=== PATIENT | male | born 1940 | race Caucasian/White ===

== ENCOUNTER 2018-03-09 10:43 | Day surgery (SDC) | payer OTHER ==
[2018-03-09] MEDS ORDERED: BALANCED SALT IRRIG PLAIN 500 ML BTL IRR ONE (11:05)
[2018-03-09] MEDS ORDERED: EPINEPHRINE/PF 1 MG/ML AMP ONE ×2 (11:05→12:22)
[2018-03-09] MEDS ORDERED: MOXIFLOXACIN HCL 10 DROPS/ML **OR USE OPTH ONE (11:06)
[2018-03-09] MEDS ORDERED: DUOVISC 1 KIT OPTH ONE (11:06)
[2018-03-09] MEDS ORDERED: BUPIVACAINE 0.25% PF 10 ML VIAL ONE (11:14)
[2018-03-09] MEDS ORDERED: NA CHLORIDE 0.9% 500 ML ONE (11:14)
[2018-03-09] MEDS ORDERED: TETRACAINE HCL 0.5% 2ML OPTH ONE (11:14)
[2018-03-09] MEDS ORDERED: PHENYLEPHRINE 10% OPTH 5ML ONE (11:14)
[2018-03-09] MEDS ORDERED: CYCLOPENTOLATE 1% OPTH 2 ML ONE (11:14)
[2018-03-09] MEDS ORDERED: LIDOCAINE 2% MPF 5 ML VIAL ONE ×2 (11:14→12:14)
[2018-03-09] MEDS ORDERED: CYCLOPENTOLATE 1% OPTH 2 ML OPTH ONE ×2 (11:15→11:20)
[2018-03-09] MEDS ORDERED: PHENYLEPHRINE 10% OPTH 5ML OPTH ONE ×2 (11:15→11:20)
--- NOTE | 2018-03-09 11:59 | P.BOP ---
Preoperative diagnosis: Nuclear sclerotic and posterior subcapsular cataract OD Postoperative diagnosis: Same Primary procedure: Phacoemulsification with IOL OD Estimated blood loss: None Anesthesia: Local (Subtenon's infusion with anesthesia for cataract surgery) Complications: None Implants: ZCB00 +20.5 Transferred to: Other (Day surgery) Condition: Good
[2018-03-09] MEDS ORDERED: PROPOFOL 200 MG/20 ML VIAL IV ONE (12:14)
[2018-03-09] MEDS ORDERED: NS 0.9% VIAL 10 ML ONE (12:17)
[2018-03-09 13:03] VITALS: BP 125/64; TEMP 97.7; O2SAT 100
--- NOTE | 2018-03-10 00:30 | OP ---
Date of Procedure: 03/09/2018 Surgeon: Nancy Garcia MD Anesthesiologist: Halina Pemberton CRNA and Moises Parikh MD. Preoperative Diagnosis: Nuclear sclerotic cataract, right eye. Operation Performed: Phacoemulsification with intraocular lens implant, right eye. Anesthesia: Per cataract surgery. Complications: None. Description Of Procedure: In day surgery, the patient was prepped with Betadine and draped. A conju nctival incision was made in the inferior nasal quadrant with Savanah scissors. A sub-Tenon block c onsisting of a 1:1 mixture of 2% Xylocaine and 0.25% bupivacaine was placed through the conjunctival incision with a blunt cannula. A Honan balloon was placed over the eye and the patient was transferr ed to the operating room. In the operating room the patient was prepped and draped in the usual sterile fashion for ophthalmic surgery. A lid speculum was placed in the right eye. Two paracentesis sites were made superiorly an d inferiorly in the limbal cornea. Viscoat was placed in the anterior chamber and a crescent blade w as used to make a corneal groove and tunnel, and a keratome was used to enter the anterior chamber. Provisc was placed in the anterior chamber and a 360 degree capsulotomy was performed with a cystitom e. The lens was hydrodissected with BSS and rotated freely. The lens was removed with a stop and ch op technique. A 15.83 phaco CDE was used to remove the lens. Residual cortex was removed with the i rrigation and aspiration. Provisc was placed in the capsular bag. A ZCB00 +24.5 lens was placed in the capsular bag without complications. Irrigation and aspiration was used to remove residual viscoe lastic. The paracentesis sites were hydrated with BSS. The wound and paracentesis sites were inspec truong and found to be watertight. Vigamox 0.07 cc was placed intracamerally at the end of the procedur e. The eye was irrigated with balanced salt solution. The eye was patched with a soft cotton patch and Tripathi metal shield. The patient was returned to day surgery in good condition. Comments: Discharge Instructions: Mr. Quintana is discharged to home in good condition. He is to follow up with Dr. Garcia in the morning. ADELAIDE/DOMINGA Voice ID: [id number] Report ID: [id number]
== END 2018-03-09 13:40 | disposition home or self-care (01) ==
LOC: OR 10:43
PROVIDERS: ATTEND Ophthalmology Retina Specialist
PROC: 08RJ3JZ Replacement of Right Lens with Synthetic Substitute, Percutaneous Approach (ICD-10-PCS; principal; 2018-03-09 11:00)
DX: H25.11 Age-related nuclear cataract, right eye (principal); G20 Parkinson's disease; E07.9 Disorder of thyroid, unspecified; I25.10 Atherosclerotic heart disease of native coronary artery without angina pectoris; I25.2 Old myocardial infarction; Z85.828 Personal history of other malignant neoplasm of skin; Z85.89 Personal history of malignant neoplasm of other organs and systems; Z87.891 Personal history of nicotine dependence; Z80.9 Family history of malignant neoplasm, unspecified; Z82.49 Family history of ischemic heart disease and other diseases of the circulatory system
CPT/HCPCS: 66984; J0171 ×2; J2704

== ENCOUNTER 2019-06-09 02:39 | Inpatient (IN) | payer OTHER ==
--- OUTSIDE RECORDS SUMMARY | 2019-06-09 02:41 | XMS REPORT ---
:1940 Author Organization eClinicalWorks Care Team Providers Name Role Phone [place], Sayra Provider Role Unavailable Allergies, Adverse Reactions, Alerts Substance Reaction Event Type N.K.D.A. Info Not Available Non Drug Allergy Problems Problem Type Condition Code Onset Dates Condition Status Assessment Elevated PSA R97.20 Active Problem Urge incontinence N39.41 Active Assessment Urge incontinence N39.41 Active Medications Medication Code Code Instructions Start End Status Dosage System Date Date Finasteride [facility] 85470800493 5 MG Orally Active 1 tablet Once a day Silenor [facility] 22831074958 6 MG Orally Active 1 tablet Once a day at bedtime Colace ND 76303642878 100 MG Orally Active 1 capsule Once a day as needed Levothyroxine ND 59386104198 88 MCG Orally Active 1 tablet Sodium Once a day on an empty stomach in the morning Tamsulosin HCl ND 00694865875 0.4 MG Orally Active 1 capsule Once a day Results No Known Results Summary Purpose eClinicalWorks Submission
--- OUTSIDE RECORDS SUMMARY | 2019-06-09 02:41 | XMS REPORT ---
:1940 Author Organization eClinicalWorks Care Team Providers Name Role Phone Linda, Sayra Provider Role Unavailable Allergies, Adverse Reactions, Alerts Substance Reaction Event Type N.K.D.A. Info Not Available Non Drug Allergy Problems Problem Type Condition Code Onset Dates Condition Status Assessment Elevated PSA R97.20 Active Problem Urge incontinence N39.41 Active Assessment Urge incontinence N39.41 Active Medications Medication Code Code Instructions Start End Date Status Dosage System Date Silenor [facility] 48963501162 6 MG Orally Active 1 tablet Once a day at bedtime Colace [facility] 16610865166 100 MG Orally Active 1 capsule Once a day as needed Tamsulosin HCl [facility] 18758823927 0.4 MG Orally Active 1 capsule Once a day Levothyroxine [facility] 81849275911 88 MCG Orally Active 1 tablet Sodium Once a day on an empty stomach in the morning Finasteride [facility] 25950911043 5 MG Orally Padma Active 1 tablet Once a day 2019 Results No Known Results Summary Purpose eClinicalWorks Submission
[2019-06-09 03:37] LABS: Absolute Lymphocytes (CBC) 1.3 K/uL (0.7-4.9); Basophils % 0.6 % (0-1.3); Hematocrit 38.8 % (39.6-49.0); Lymphocytes % 20.1 % (15.3-44.8); MPV 8.9 fL (7.6-11.3); RBC Red Blood Cell Count 4.14 M/uL (4.33-5.43)
[2019-06-09 03:47] LABS: ALT/SGPT 25 U/L (12-78); AST/SGOT 23 U/L (15-37); Albumin 3.4 g/dL (3.4-5.0); Alkaline Phosphatase 105 U/L (45-117); BUN Blood Urea Nitrogen 21 mg/dL (7-18); Bicarbonate 32 mmol/L (21-32); Bilirubin Direct 0.3 mg/dL (0-0.2); Glucose Level 78 mg/dL (74-106); Lipase 70 U/L (73-393); Potassium 3.9 mmol/L (3.5-5.1); Protein, Total 7.5 g/dL (6.4-8.2); Sodium Level 140 mmol/L (136-145); Troponin (Emerg Dept Use Only) < 0.02 ng/mL (0.0-0.045)
[2019-06-09] MEDS ORDERED: ACETAMINOPHEN 325 MG TABLET ONE (03:52)
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
[2019-06-09] MEDS ORDERED: AMIODARONE HCL 150 MG/3 ML INJ IV ONE (05:52)
[2019-06-09] MEDS ORDERED: D5W 100 ML IV ONE (05:53)
[2019-06-09] MEDS ORDERED: AMIODARONE IN DEXTROSE,ISO-OSM 360 MG/200 ML BAG IV ONE (05:54)
[2019-06-09 06:07] LABS: Magnesium 2.2 mg/dL (1.8-2.4)
[2019-06-09] MEDS ORDERED: MORPHINE 4 MG/ML SYR IV PRN (07:35)
[2019-06-09] MEDS ORDERED: ACETAMINOPHEN 500 MG TAB PO PRN (07:35)
--- NOTE | 2019-06-09 07:51 | RAD REPORT ---
EXAM DESCRIPTION: RAD - Chest Single View - 06/09/2019 4:54 am CLINICAL HISTORY: CHEST PAIN COMPARISON: CHEST PA AND LAT 2 VIEW dated 12/22/2014 TECHNIQUE: AP portable chest image was obtained 06/09/2019 4:54 am . FINDINGS: Lungs are underinflated accentuating the baseline interstitial pattern. No large mass or c onsolidations seen. Significant failure and volume overload are not likely present. Heart size is upp er normal range. Mediastinum is accentuated by tortuous aorta and patient rotation. When adjusting fo r rotation and shallow inspiration cardiomediastinal silhouette is not clearly different. No measurab le pleural effusion and no pneumothorax. No acute bony abnormality seen. No acute aortic findings joslyn pected. IMPRESSION: Baseline interstitial pattern is present accentuated by shallow inspiration. No focal ma ss or consolidation.
[2019-06-09] MEDS ORDERED: AMIODARONE HCL 450 MG in D5W 241 ML IV SCH (08:00)
--- NOTE | 2019-06-09 08:15 | EKG ---
Test Date: 2019-06-09 Test Time: 04:00:07 Anesthesia Technician: SWG MEASUREMENT RESULTS: Intervals: Rate: 76 VA: 274 QRSD: 86 QT: 384 QTc: 432 [place]: P: 77 VA: 274 QRS: 36 T: 70 INTERPRETIVE STATEMENTS: Sinus rhythm with 1st degree AV block Otherwise normal ECG Compared to ECG 10/04/2013 13:20:44 Left ventricular hypertrophy no longer present Electronically Signed On 06-09-19 08:14:50 PROCESS CONTROLLER by Rick Garcia
[2019-06-09] MEDS ORDERED: DOXEPIN HCL 6 MG PO SCH (09:00)
[2019-06-09] MEDS ORDERED: LEVODOPA PO SCH (09:00)
[2019-06-09] MEDS ORDERED: AMIODARONE HCL 200 MG TAB PO SCH (09:00)
[2019-06-09] MEDS ORDERED: ENOXAPARIN 80 MG/0.8 ML SQ SCH (09:00)
[2019-06-09] MEDS ORDERED: CARBIDOPA PO SCH (09:00)
[2019-06-09] MEDS ORDERED: ASPIRIN 81 MG CHEWABLE TABLET ONE (09:09)
[2019-06-09] MEDS ORDERED: ENOXAPARIN 80 MG/0.8 ML SQ ONE (09:09)
[2019-06-09] MEDS: ASPIRIN EC 81 MG TAB PO SCH (09:45)
[2019-06-09] MEDS: CARBIDOPA/LEVODOPA 25/100 TAB PO SCH ×3 (09:45→20:28)
--- NOTE | 2019-06-09 10:47 | RAD REPORT ---
EXAM DESCRIPTION: CT - Chest For Pe Angio - 06/09/2019 6:52 am CLINICAL HISTORY: The patient is 78 years old and is Male; CHEST PAIN TECHNIQUE: Axial computed tomographic angiography images of the chest with intravenous contrast. S agittal and coronal reformatted images were created and reviewed. This CT exam was performed using one or more of the following dose reduction techniques: automated exposure control, adjustment of t he mA and/or kV according to patient size, and/or use of iterative reconstruction technique. MIP reconstructed images were created and reviewed. COMPARISON: No relevant prior studies available. FINDINGS: PULMONARY ARTERIES: There are no obvious filling defects identified within the pulmonary arteries to suggest pulmonary embolism. AORTA: Atherosclerosis of the aorta is present. No thoracic aortic aneurysm. LUNGS: Minimal dependent densities in the lung bases are present. Focal area of scarring with air bronchograms in the left upper lobe is noted. The tracheobronchial tree is widely patent. Calci fied granuloma within the right lower lobe is present. No mass. PLEURAL SPACE: Unremarkable. No significant effusion. No pneumothorax. HEART: Unremarkable. No cardiomegaly. No significant pericardial effusion. No evidence of RV dysfunction. BONES/JOINTS: Multilevel degenerative change of the spine is present. No acute fracture. No dislocation. SOFT TISSUES: Unremarkable. LYMPH NODES: Unremarkable. No enlarged lymph nodes. IMPRESSION: 1. No evidence of pulmonary embolism. 2. Focal area of suggested scarring within the left lung apex with a few air bronchograms and pleur al thickening. Comparison with prior imaging would be useful. Electronically signed by: Reanna Christiansen MD 06/09/2019 5:09 AM WOOD WINDOW AND DOOR CRAFTSMAN Due to temporary technical issues with the PACS/Fluency reporting system, reports are being signed by the in house radiologist as a courtesy to ensure prompt reporting. The interpreting radiologist is f ully responsible for the content of the report.
[2019-06-09 10:59] VITALS: BMI 25.5
--- NOTE | 2019-06-09 11:28 | EKG ---
Test Date: 2019-06-09 Test Time: 05:44:31 Salon Stylist: NAYELY MEASUREMENT RESULTS: Intervals: Rate: 86 TN: QRSD: 72 QT: 352 QTc: 421 [place]: P: TN: QRS: 34 T: 68 INTERPRETIVE STATEMENTS: Poor data quality Sinus rhythm Normal ECG Compared to ECG 06/09/2019 05:44:04 no significant change from previous ECG Electronically Signed On 06-09-19 11:27:23 ASSISTANT BANQUET MANAGER by Rick Garcia
--- NOTE | 2019-06-09 11:28 | EKG ---
Test Date: 2019-06-09 Test Time: 05:44:04 Equipment Operating Engineer: NAYELY MEASUREMENT RESULTS: Intervals: Rate: 86 NH: QRSD: 78 QT: 334 QTc: 399 [place]: P: 122 NH: QRS: 47 T: 86 INTERPRETIVE STATEMENTS: Sinus rhythm Normal ECG Compared to ECG 06/09/2019 05:07:38 no significant change from previous ECG Electronically Signed On 06-09-19 11:27:57 SIGNAL HELPER by Rick Garcia
--- NOTE | 2019-06-09 11:28 | EKG ---
Test Date: 2019-06-09 Test Time: 05:07:38 Night Shift: NAYELY MEASUREMENT RESULTS: Intervals: Rate: 71 CT: 236 QRSD: 92 QT: 396 QTc: 430 [place]: P: 82 CT: 236 QRS: 49 T: 84 INTERPRETIVE STATEMENTS: Sinus rhythm with 1st degree AV block Otherwise normal ECG Compared to ECG 06/09/2019 04:00:07 No significant changes Electronically Signed On 06-09-19 11:28:00 BACKING IN MACHINE TENDER by Rick Garcia
--- NOTE | 2019-06-09 13:42 | ECHO ---
HEIGHT: 5 ft 6 in WEIGHT: 158 lb 6 oz DATE OF STUDY: 06/09/[address]: Diana Martínez MD 2-DIMENSIONAL: YES M.MODE: YES DOPPLER: YES COLOR FLOW: YES TDS: YES PORTABLE: DEFINITY: BUBBLE STUDY: DIAGNOSIS: VENTRICULAR TACHYCARDIA CARDIAC HISTORY: CATHERIZATION: SURGERY: PROSTHETIC VALVE: PACEMAKER: MEASUREMENTS (cm) DIASTOLIC (NORMALS) SYSTOLIC (NORMALS) IVSd 1.2 (0.6-1.2) LA Diam 4.0 (1.9-4.0) LVEF 60-69% LVIDd 3.6 (3.5-5.7) LVIDs 2.7 (2.0-3.5) %FS 25% LVPWd 1.4 (0.6-1.2) Ao Diam (2.0-3.7) 2 DIMENSIONAL ASSESSMENT: RIGHT ATRIUM: NORMAL LEFT ATRIUM: DILATED RIGHT VENTRICLE: NORMAL LEFT VENTRICLE: LEFT VENTRICULAR HYPERTROPHY TRICUSPID VALVE: NORMAL MITRAL VALVE: MITRAL ANNULAR CALCIFICATION PULMONIC VALVE: NORMAL AORTIC VALVE: NORMAL PERICARDIAL EFFUSION: NONE AORTIC ROOT: NORMAL LEFT VENTRICULAR WALL MOTION: NORMAL DOPPLER/COLOR FLOW: NORMAL COMMENTS: NORMAL LEFT VENTRICULAR EJECTION FRACTION. LEFT VENTRICULAR HYPERTROPHY. DILATED LEFT ATRIUM. MITRAL ANNULAR CALCIFICATION. TECHNOLOGIST: ROSY TERRAZAS
[2019-06-09] MEDS ORDERED: TRAMADOL HCL 50 MG TAB PO PRN (14:37)
--- NOTE | 2019-06-09 14:38 | P.PN ---
Subjective Date of Service: 06/09/19 Primary Care Provider: Dr. Mendoza; Neurology-Dr. Reyna Chief Complaint: Chest pain Subjective: Improving, Doing well Physical Examination - Vital Signs Temperature: 98.2 F Blood Pressure: 101/66 Pulse: 62 Respirations: 14 Pulse Ox (%): 97 - Physical Exam General: Alert, In no apparent distress, Oriented x3, Cooperative HEENT: Atraumatic Neck: Supple Respiratory: Clear to auscultation bilaterally, Normal air movement Cardiovascular: Normal pulses, Regular rate/rhythm Gastrointestinal: Normal bowel sounds, Soft and benign, Non-distended Neurological: Normal speech, Normal strength at 5/5 x4 extr, Normal tone, Normal affect - Studies Laboratory Data (last 24 hrs) 06/09/19 03:11: Magnesium Cancelled 06/09/19 03:11: Sodium 140, Potassium 3.9, BUN 21 H, Creatinine 0.69, Glucose 78 , Magnesium 2.2, Total Bilirubin 1.0, AST 23, ALT 25, Alkaline Phosphatase 105, Lipase 70 L 06/09/19 03:11: WBC 6.3, Hgb 12.9 L, Hct 38.8 L, Plt Count 264 Medications List Reviewed: Yes Assessment & Plan Discharge Plan: Home Plan to discharge in: 24 Hours - Code Status/Comfort Care Code Status Assessed: Yes (Patient is full code) Physician Review Additional Text: Impression: Chest pain atypical Parkinson's BPH Hypothyroidism Plan: Chest pain atypical: Patient without chest pain at this time. Case discussed with cardiology. Cardiac enzymes unremarkable. Cardiology reviewed initial EKG. No evidence of V-tach. Amiodarone discontinued. Likely arthritic in nature. Will provide medication for pain. Will order physical therapy to assess ambulation. Will continue to monitor closely. Anticipate discharge likely tomorrow with home health and physical therapy. Parkinson's: Patient is seen by neurology. Will continue his medication. Will have physical therapy assess ambulation. BPH: Continue medication. Hypothyroidism: Continue medication Time Spent Managing Pts Care (In Minutes): 55
--- NOTE | 2019-06-09 16:24 | CON ---
Reason For Consultation: Ventricular tachycardia. History Of Present Illness: Mr. Quintana is 78. He has a very remote history 17 years ago of the stent in one of his coronary arteries. Since then, he has done well with regard to the heart. He has und erlying Parkinson disease that dominates every minute of his life. He is very ill from his Parkinson disease. He takes carbidopa/levodopa, Flomax, finasteride, and levothyroxine for underlying hypothy roidism. He is not having angina. Does not have dyslipidemia or diabetes. He has no allergies. He uses no tobacco. He came to the hospital with pain. He points to the rib, but it is at the very heri ttom of the rib cage where he points is actually the left side of the abdomen. He has been having it off and on for a few days. There is no nausea, vomiting, sweating, dyspnea, it tends to come and go for no particular reason. His EKGs do not change. His EKGs are very problematic because of his und erlying tremor. There is a lot of artifact and some misinterpretations have been made and clinical d ecision was made on one misinterpretation that his EKG never showed ventricular tachycardia, it was a rtifact from motion, clearly not ventricular tachycardia. He has been started on amiodarone, but we will stop that. He has had a CT angio of the chest that did not reveal anything wrong. EKGs do not show infarction, injury, or ischemia, lots of artifact, lots of poor data quality and those. His car diac enzymes are normal. Plan: I think we can do an echocardiogram to see if there is any wall motion abnormality. I gave hi m some pain medicines to help and we will keep an eye on things. We can consider doing a nuclear str ess test that I think his ability to hold still for the test would be problematic. Dr. Up will see him after we have some more data and decide on whether he needs a heart catheterization or stress test, but clearly the diagnosis of ventricular tachycardia was not correct. He should not be on amiodarone . RADHA/DOMINGA Voice ID: [id number] Report ID: [id number]
[2019-06-09 17:30] VITALS: O2SAT 100
[2019-06-09] MEDS: ENSURE ENLIVE 237 ML CAN PO SCH (20:27)
[2019-06-09] MEDS ORDERED: JUVEN PACKET PO SCH (21:00)
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
[2019-06-10 04:45] LABS: Thyroid Stimulating Hormone 0.669 uIU/mL (0.360-3.740)
[2019-06-10 05:06] VITALS: BP 133/62; TEMP 97
[2019-06-10] MEDS ORDERED: LEVOTHYROXINE SOD 0.088 MG TAB PO SCH (06:30)
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
--- NOTE | 2019-06-10 08:39 | P.DS ---
Admission Date: 06/09/19 Discharge Date: 06/10/19 Primary Care Provider: Dr. Mendoza; Neurology-Dr. Reyna Disposition: ROUTINE DISCHARGE Discharge Condition: GOOD Reason for Admission: Chest pain Consultations: Cardiology-Dr. Garcia Procedures: CT chest: FINDINGS: PULMONARY ARTERIES: There are no obvious filling defects identified within the pulmonary arteries to suggest pulmonary embolism. AORTA: Atherosclerosis of the aorta is present. No thoracic aortic aneurysm. LUNGS: Minimal dependent densities in the lung bases are present. Focal area of scarring with air bronchograms in the left upper lobe is noted. The tracheobronchial tree is widely patent. Calcified granuloma within the right lower lobe is present. No mass. PLEURAL SPACE: Unremarkable. No significant effusion. No pneumothorax. HEART: Unremarkable. No cardiomegaly. No significant pericardial effusion. No evidence of RV dysfunction. BONES/JOINTS: Multilevel degenerative change of the spine is present. No acute fracture. No dislocation. SOFT TISSUES: Unremarkable. LYMPH NODES: Unremarkable. No enlarged lymph nodes. IMPRESSION: 1. No evidence of pulmonary embolism. 2. Focal area of suggested scarring within the left lung apex with a few air bronchograms and pleural thickening. Comparison with prior imaging would be useful. ECHO: EF 60% LEFT VENTRICULAR WALL MOTION: NORMAL DOPPLER/COLOR FLOW: NORMAL COMMENTS: NORMAL LEFT VENTRICULAR EJECTION FRACTION. LEFT VENTRICULAR HYPERTROPHY. DILATED LEFT ATRIUM. MITRAL ANNULAR CALCIFICATION. Medical Problem List: Chest pain atypical likely costochondritis Parkinson's BPH Hypothyroidism Brief History of Present Illness: 78-year-old male presented to emergency room with chest pain. Patient was evaluated in the emergency room. Patient has a history of BPH and Parkinson 's. There was some concern for arrhythmia. Patient was admitted for further evaluation. Hospital Course: Patient presented with chest pain. Patient had point tenderness to the left ribcage region. There was some concern of abnormal rhythm. Patient was evaluated by Cardiology. No rhythm issues were identified. Patient had normal sinus rhythm. No V-tach was identified. Patient had been on initially amiodarone. This was discontinued. Since that time patient has done well. Blood pressure remained stable off medication. Chest pain likely arthritic in nature. Echocardiogram unremarkable. CT chest also unremarkable. At discharge patient may continue with home health and physical therapy at discharge. At discharge he may continue with ibuprofen 400 mg twice daily as needed for pain. Fall precautions in place. Recommend follow up with his PCP in 1 week to follow up this hospitalization. Patient with Parkinson's. Patient was seen by neurology. At discharge he will continue with carbidopa levodopa 25/100 mg 3 times a day. Fall precautions in place. Recommend follow up with neurology in 2-4 weeks. Patient with BPH. This has remained stable. At discharge he will continue with Proscar 5 mg daily and Flomax 0.4 mg daily. Patient with hypothyroidism. Tsh within normal range. At discharge she will continue with levothyroxine 88 mcg daily. Vital Signs/Physical Exam: Temp Pulse Resp BP Pulse Ox 97.0 F 78 16 133/62 97 06/10/19 07:43 06/10/19 07:43 06/10/19 07:43 06/10/19 07:43 06/10/19 07:43 General: Alert, In no apparent distress, Oriented x3, Cooperative HEENT: Atraumatic Neck: Supple Respiratory: Clear to auscultation bilaterally, Normal air movement Cardiovascular: Normal pulses, Regular rate/rhythm Gastrointestinal: Normal bowel sounds Neurological: Normal speech, Normal strength at 5/5 x4 extr, Normal tone, Other (mild tremor) Laboratory Data at Discharge: WBC 6.3 K/uL (4.3-10.9) 06/09/19 03:11 Hgb 12.9 g/dL (13.6-17.9) L 06/09/19 03:11 Hct 38.8 % (39.6-49.0) L 06/09/19 03:11 Plt Count 264 K/uL (152-406) 06/09/19 03:11 Sodium 140 mmol/L (136-145) 06/09/19 03:11 Potassium 3.9 mmol/L (3.5-5.1) 06/09/19 03:11 BUN 21 mg/dL (7-18) H 06/09/19 03:11 Creatinine 0.69 mg/dL (0.55-1.3) 06/09/19 03:11 Glucose 78 mg/dL (74-106) 06/09/19 03:11 Magnesium 2.2 mg/dL (1.8-2.4) 06/09/19 03:11 Total Bilirubin 1.0 mg/dL (0.2-1.0) 06/09/19 03:11 AST 23 U/L (15-37) 06/09/19 03:11 ALT 25 U/L (12-78) 06/09/19 03:11 Alkaline Phosphatase 105 U/L (45-117) 06/09/19 03:11 Troponin I < 0.02 ng/mL (0.0-0.045) 06/09/19 08:30 Triglycerides 53 mg/dL (<150) 06/10/19 03:50 Cholesterol 144 mg/dL (<200) 06/10/19 03:50 HDL Cholesterol 61 mg/dL (40-60) H 06/10/19 03:50 Cholesterol/HDL Ratio 2.36 06/10/19 03:50 Lipase 70 U/L (73-393) L 06/09/19 03:11 Home Medications: Levothyroxine [Synthroid*] 88 mcg PO DAILY 10/08/13 Carbidopa/Levodopa [Carbidopa-Levo 25-100 mg Odt] 1 each PO TID 03/04/18 Tamsulosin [Flomax*] 0.4 mg PO DAILY 03/04/18 Finasteride [Proscar*] 1 tab PO DAILY 06/09/19 Patient Discharge Instructions: 1. Recommend follow up with PCP in 1 week to follow up this hospitalization. 2. Patient presented with chest pain. Patient had point tenderness to the left ribcage region. There was some concern of abnormal rhythm. Patient was evaluated by Cardiology. No rhythm issues were identified. Patient had normal sinus rhythm. No V-tach was identified. Patient had been on initially amiodarone. This was discontinued. Since that time patient has done well. Blood pressure remained stable off medication. Chest pain likely arthritic in nature. Echocardiogram unremarkable. CT chest also unremarkable. At discharge patient may continue with home health and physical therapy at discharge. At discharge he may continue with ibuprofen 400 mg twice daily as needed for pain. Fall precautions in place. Recommend follow up with his PCP in 1 week to follow up this hospitalization. 3. Patient with Parkinson 's. Patient was seen by neurology. At discharge he will continue with carbidopa levodopa 25/100 mg 3 times a day. Fall precautions in place. Recommend follow up with neurology in 2-4 weeks. 4. Patient with BPH. This has remained stable. At discharge he will continue with Proscar 5 mg daily and Flomax 0.4 mg daily. 5. Patient with hypothyroidism. Tsh within normal range. At discharge she will continue with levothyroxine 88 mcg daily. Diet: AHA Activity: Fall precautions Time spent managing pt's care (in minutes): 55
[2019-06-10] MEDS: ENSURE ENLIVE 237 ML CAN PO SCH (09:00)
[2019-06-10] MEDS ORDERED: TAMSULOSIN 0.4 MG SR CAP PO SCH (09:00)
[2019-06-10] MEDS ORDERED: LIDOCAINE 4% PATCH TOP SCH (09:00)
[2019-06-10] MEDS ORDERED: FINASTERIDE 5 MG TAB PO SCH (09:00)
[2019-06-10] MEDS: CARBIDOPA/LEVODOPA 25/100 TAB PO SCH (10:12)
[2019-06-10] MEDS: ASPIRIN EC 81 MG TAB PO SCH (10:12)
--- NOTE | 2019-06-10 13:46 | PN ---
Date of Progress Note: 06/10/2019 Mr. Quintana is an 78-year-old, had an episode what was thought to be ventricular tachycardia, but turne d out to be artifact. Dr. Garcia saw him and he has suggested maybe doing a stress test. The patien t does have significant tremors and he is not in a situation to do a stress test today. Echocardiogr am, which was done was normal. We will sign off his case. Plan on an outpatient stress test. He ca n go home whenever it is okay with Dr. Arshad. No further arrhythmias noted. NB/MODL Voice ID: [id number] Report ID: [id number]
== END 2019-06-10 10:12 | disposition home or self-care (01) | DRG 206 ==
LOC: ER 02:39 → ERHOLD 07:35 → 3RD-ICU 09:54 → 4TH 18:25
PROVIDERS: ADMIT Hospitalist; ATTEND Hospitalist
DX: M94.0 Chondrocostal junction syndrome [Tietze] (principal); G20 Parkinson's disease; N40.0 Benign prostatic hyperplasia without lower urinary tract symptoms; E03.9 Hypothyroidism, unspecified; I25.10 Atherosclerotic heart disease of native coronary artery without angina pectoris; Z95.5 Presence of coronary angioplasty implant and graft; I25.2 Old myocardial infarction; Z96.653 Presence of artificial knee joint, bilateral
CPT/HCPCS: 36415; 71045; 71275; 80048; 80061; 80076; 83690; 83735; 84439; 84443; 84484; 85025; 93005; 93306; 96374; 97110; 97112; 97116; 97161; 97530; 99285; J0282; J1650; J7060; Q9967

== ENCOUNTER 2019-11-08 07:42 | Emergency (ER) | payer OTHER ==
--- OUTSIDE RECORDS SUMMARY | 2019-11-08 07:55 | XMS REPORT | Continuity of Care Document ---
:1940 Author Organization [facility] t Address [address] [place] [address] Care Team Providers Name Role Phone Melvin FREITAS Primary Care Physician Problems Condition Condition Condition Status Onset Resolution Last Treating Co mments Source Name Details Category Date Date Treatment Clinician Date Lower Lower Disease Active urinary urinary 3-26 Anderso tract tract 00:00: n symptoms symptoms 00 Elevated Elevated Diagnosis Active [facility] PSA PSA [facility] Urge Urge Diagnosis Active [facility] incontinen incontinen [facility] Allergies, Adverse Reactions, Alerts This patient has no known allergies or adverse reactions. Family History Family Member Diagnosis Comments Start Date Stop Date Source Natural brother Mesothelioma MD Maximo tripp Family member problems MD Selwyn diaz Social History Social Habit Start Date Stop Date Quantity Comments Source History of tobacco Current smoker MD Orta use Sex Assigned At MD Argueta on Cigarettes smoked 2016-01-27 2016-01-27 MD Maximo tripp current (pack per 00:00:00 00:00:00 day) - Reported Tobacco use and 2016-01-27 2016-01-27 Former user MD Sweeney son exposure 00:00:00 00:00:00 Alcohol intake 2016-01-27 2016-01-27 Current MD Selwyn diaz 00:00:00 00:00:00 non-drinker of alcohol (finding) Smoking Status Start Date Stop Date Source Former smoker 2016-01-27 00:00:00 2016-01-27 00:00:00 MD Sweeney son Medications Ordered Filled Start Stop Current Ordering Indication Dosage Frequency Signature Comments Components Source Medication Medication Date Date Medication? Clinician (SIG) Name Name tamsulosin 2017-04 Yes Gross .4mg Take 1 MD (FLOMAX) 2-07 hematuria capsule And erso 0.4 mg 24 00:00: (0.4 mg) n hr capsule 00 by mouth daily. finasteride Yes Gross TAKE 1 MD (PROSCAR) 5 1-13 hematuria TABLET (5 Anderso mg tablet 00:00: MG TOTAL) n 00 BY MOUTH DAILY. DIPHENHYDRA 2015-04 Yes 1{tbl} Take 1 MD MINE HCL 0-18 tablet by Kendall o (BENADRYL 15:50: mouth as n ORAL) 15 needed. itching levothyroxi 2015-04 Yes 88mg Take 88 mg MD ne 0-18 by mouth Anderso (SYNTHROID, 15:50: daily. n LEVOTHROID) 15 88 mcg tablet MAGNESIUM 2015-04 Yes 400mg Take 400 MD ORAL 0-18 mg by Anderso 15:50: mouth as n 15 needed. Leg cramps multivitami 2015-04 Yes 1{tbl} Take 1 MD n 0-18 tablet by Anderso (THERAGRAN) 15:50: mouth n tab tablet 15 every other day. zolpidem 2015-04 Yes 5mg Take 5 mg MD (AMBIEN) 5 0-18 by mouth Patel so mg tablet 15:50: daily. n 15 Zolpidem Tartrate traZODone Yes TAKE 1 MD (DESYREL) 9-22 TABLET (50 Maximo rso 50 mg 00:00: MG) BY n tablet 00 MOUTH DAILY AT BEDTIME NEEDED PROAIR HFA Yes INHALE 1 MD 90 1-27 PUFF 2 -4 Anderso mcg/actuati 00:00: TIMES A n on inhaler 00 DAY INHALED Tamsulosin Tamsulosin Yes Sayra [address] [facility] HCl HCl [place] [facility] Silenor Silenor Yes Sayra [address] [facility] [place] at bedtime [facility] Levothyroxi Levothyroxi Yes Sayra [address] [facility] ne Sodium ne Sodium [place] on an [facility] stomach in l [facility] Colace Colace Yes Sayra [address] [facility] [place] as needed [facility] Finasteride Finasteride No Sayra [address] [facility] 08-08 [facility] Procedures This patient has no known procedures. Encounters Start End Encounter Admission Attending Care Care Encounter Source Date/Time Date/Time Type Type Clinicians Facility Department ID 2019-05-14 2019-05-14 Outpatient Tita Piña [id number] [facility] 13:00:00 13:00:00 t Specialty/U [facility] 2019-02-10 2019-02-10 Outpatient Tita Piña [id number] [facility] 09:30:00 09:30:00 t Specialty/U [facility] 2018-11-11 2018-11-11 Outpatient Tita Piña [id number] [facility] 10:00:00 10:00:00 t Specialty/U [facility] Results This patient has no known results.
[2019-11-08 08:20] LABS: Absolute Lymphocytes (CBC) 0.4 K/uL (0.7-4.9); Basophils % 0.3 % (0-1.3); Hematocrit 40.8 % (39.6-49.0); Lymphocytes % 3.9 % (15.3-44.8); MPV 8.7 fL (7.6-11.3); RBC Red Blood Cell Count 4.38 M/uL (4.33-5.43)
--- NOTE | 2019-11-08 08:30 | RAD REPORT ---
EXAM DESCRIPTION: CT - [id number] - 11/08/2019 8:10 am CLINICAL HISTORY: PAIN, slip and fall, head and neck pain COMPARISON: SOFT TISSUE NECK W CONTRAST dated 09/29/2013; Chest For Pe Angio dated 06/09/2019; Chest S jessi View dated 06/09/2019 TECHNIQUE: Axial 5 mm thick images of the head were obtained. Axial 2 mm thick images of the cervic al spine were obtained with sagittal and coronal reconstruction images generated and reviewed. All CT scans are performed using dose optimization technique as appropriate and may include automated exposure control or mA/KV adjustment according to patient size. FINDINGS: No intracranial hemorrhage, mass, edema or acute intracranial finding. No suspicion for ac [place] infarction. No cortical edema or sulcal effacement. Ventricles are in proportion to the mild to m oderate volume loss. Mild to moderate chronic ischemic changes also present. No extra-axial fluid col lections. Mastoid air cells are clear. Chronic right maxillary sinusitis changes are present. Old fac ial bone fractures are evident. The imaged portions of the facial bones match the 2014. No new globe or orbital content abnormality suspected. Cervical bodies are normal in height. No subluxation abnormality. There is minimal rotation of C1 rel ative to the body of C2. This is not substantially different from the prior CT study. Prominent degen erative change present at the dens C1 level. Disc space narrowing is present at all levels except C2- 3. No fracture or acute bony abnormality. No pathologic bone process seen. Facet joint degenerative c hanges are present. Several levels show bony foraminal encroachment. Central canal detail is inherent ly limited. No paraspinal mass or hematoma. Limited upper chest imaging shows focal parenchymal opacification at the left apex. This is only part ially assessed. Scarring is most likely. Mass is unlikely. Appearance has not changed since May 2019. IMPRESSION: Atrophy and chronic ischemic changes are present. No hemorrhage, edema or acute intracra nial finding identifiable. Chronic ischemic change can mask nonhemorrhagic CVA. If there is concern the patient's fall was sebas ered by a CVA, follow-up MR imaging could be performed. 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 Prominent cervical spine degenerative change as detailed. No acute findings seen.
--- NOTE | 2019-11-08 08:49 | RAD REPORT ---
EXAM DESCRIPTION: RAD - Elbow Left 3 View - 11/08/2019 8:19 am CLINICAL HISTORY: PAIN, slip and fall, left elbow pain COMPARISON: None. FINDINGS: No fracture is identified and no elevated posterior fat pad. There is no dislocation or pe riosteal reaction noted. No foreign body or other soft tissue abnormality. IMPRESSION: Negative left elbow examination.
[2019-11-08 09:11] LABS: ALT/SGPT 18 U/L (12-78); AST/SGOT 23 U/L (15-37); Albumin 3.8 g/dL (3.4-5.0); Alkaline Phosphatase 105 U/L (45-117); BUN Blood Urea Nitrogen 22 mg/dL (7-18); Bicarbonate 28 mmol/L (21-32); Bilirubin Total 1.6 mg/dL (0.2-1.0); Creatine Phosphokinase 164 U/L (39-308); Glucose Level 137 mg/dL (74-106); Protein, Total 7.9 g/dL (6.4-8.2); Sodium Level 143 mmol/L (136-145)
[2019-11-08 09:13] LABS: Blood Morphology Comment NOT SEEN (NOT SEEN); Platelet Estimate ADEQ
[2019-11-08] MEDS ORDERED: NA CHLORIDE 0.9% 500 ML ONE (09:45)
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
[2019-11-08 11:03] VITALS: TEMP 98.9
[2019-11-08 11:07] VITALS: BP 129/71; O2SAT 99
== END 2019-11-08 10:57 | disposition home or self-care (01) ==
LOC: ER 07:42
DX: S50.02XA Contusion of left elbow, initial encounter (principal); G20 Parkinson's disease; W07.XXXA Fall from chair, initial encounter; Y93.89 Activity, other specified; Y92.9 Unspecified place or not applicable; I25.2 Old myocardial infarction
CPT/HCPCS: 85025; 36415; 82550; 80053; 70450; 72125; 73080; J7040; 96360; 99284

== ENCOUNTER 2019-11-11 08:06 | Emergency (ER) | payer OTHER ==
--- OUTSIDE RECORDS SUMMARY | 2019-11-11 08:34 | XMS REPORT | Continuity of Care Document ---
:1940 Author Organization [facility] t Address [address] [place] [address] Care Team Providers Name Role Phone Melvin FREITAS Primary Care Physician Problems Condition Condition Condition Status Onset Resolution Last Treating Co mments Source Name Details Category Date Date Treatment Clinician Date Lower Lower Disease Active urinary urinary 3-26 Anderso tract tract 00:00: n symptoms symptoms 00 Elevated Elevated Diagnosis Active [facility] PSA PSA [facility] Urge Urge Diagnosis Active [facility] incontinen incontinen [facility]y k[facility] - [facility] Allergies, Adverse Reactions, Alerts This [...] Sayra [address] [facility] HCl HCl [place] [facility] Silenor Silenor Yes Sayra [address] [facility] Linda at bedtime [facility] Levothyroxi Levothyroxi Yes Sayra [address] [facility] ne Sodium ne Sodium [place] on an [facility] stomach in l the [facility] Colace Colace Yes Sayra [facility] [place] as [facility] Finasteride Finasteride No Sayra [address] [facility] 08-08 Linda [facility] Procedures This patient has no known procedures. Encounters Start End Encounter Admission Attending Care Care Encounter Source Date/Time Date/Time Type Type Clinicians Facility Department ID 2019-05-14 2019-05-14 Outpatient Tita Piña [id number] [facility] 13:00:00 13:00:00 t Specialty/U Becky kes - Specialty [facility]y [facility] 2019-02-10 2019-02-10 Outpatient Tita Piña [id number] [facility] 09:30:00 09:30:00 t Specialty/U Becky kes - Specialty rology [facility] 2018-11-11 2018-11-11 Outpatient Tita Piña [id number] [facility] 10:00:00 10:00:00 t Specialty/U Becky kes - Specialty rology [facility] Results This patient has no known results.
[2019-11-11 09:03] LABS: Absolute Lymphocytes (CBC) 0.9 K/uL (0.7-4.9); Basophils % 1.4 % (0-1.3); Hematocrit 39.5 % (39.6-49.0); Lymphocytes % 13.1 % (15.3-44.8); MPV 8.9 fL (7.6-11.3); RBC Red Blood Cell Count 4.29 M/uL (4.33-5.43)
[2019-11-11 09:12] LABS: BUN Blood Urea Nitrogen 18 mg/dL (7-18); Bicarbonate 29 mmol/L (21-32); Glucose Level 107 mg/dL (74-106); Magnesium 2.2 mg/dL (1.8-2.4); Potassium 3.9 mmol/L (3.5-5.1); Sodium Level 142 mmol/L (136-145)
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
[2019-11-11 09:53] VITALS: TEMP 97.8; O2SAT 97
[2019-11-11 09:54] VITALS: BP 123/70
== END 2019-11-11 09:46 | disposition home or self-care (01) ==
LOC: ER 08:06
DX: G20 Parkinson's disease (principal); I25.2 Old myocardial infarction
CPT/HCPCS: 36415; 80048; 83735; 85025; 93005; 99284

== ENCOUNTER 2020-05-28 22:13 | Inpatient (IN) | payer OTHER ==
[2020-05-28 22:33] LABS: Absolute Lymphocytes (CBC) 1.1 K/uL (0.7-4.9); Basophils % 0.9 % (0-1.3); Hematocrit 39.4 % (39.6-49.0); MPV 8.3 fL (7.6-11.3); RBC Red Blood Cell Count 4.28 M/uL (4.33-5.43)
[2020-05-28 22:39] LABS: Protime INR 1.16
[2020-05-28 22:51] LABS: Albumin 3.4 g/dL (3.4-5.0); Bilirubin Total 0.8 mg/dL (0.2-1.0); Potassium 4.3 mmol/L (3.5-5.1); Protein, Total 7.8 g/dL (6.4-8.2)
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
[2020-05-29] MEDS ORDERED: ALBUTEROL 2.5 MG/3 ML NEB SOL NEB PRN (00:09)
[2020-05-29] MEDS ORDERED: ONDANSETRON 4 MG/2 ML VIAL IV PRN ×2 (00:09→18:49)
[2020-05-29] MEDS ORDERED: LORAZEPAM 0.5 MG TABLET PO PRN (00:12)
[2020-05-29] MEDS ORDERED: Oxycodone HCl/Acetaminophen 1 TAB TAB PO PRN (00:12)
[2020-05-29] MEDS ORDERED: ONDANSETRON 4 MG/2 ML VIAL ONE (00:17)
[2020-05-29] MEDS ORDERED: MORPHINE 4 MG/ML SYR ONE (00:17)
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
[2020-05-29] MEDS ORDERED: NA CHLORIDE 0.9% 1,000 ML ONE (00:21)
[2020-05-29] MEDS ORDERED: D5 0.9 NS 1,000 ML IV SCH (01:00)
[2020-05-29 01:15] LABS: Thyroid Stimulating Hormone 1.57 uIU/mL (0.360-3.740)
[2020-05-29] MEDS: MORPHINE 2 MG/ML SYR IV PRN ×2 (01:41→15:48)
[2020-05-29] MEDS: HEPARIN 5000 UNIT/ML 1 ML VIAL SQ SCH ×3 (01:41→15:53)
[2020-05-29 02:28] VITALS: BMI 25.7
--- NOTE | 2020-05-29 07:39 | RAD REPORT ---
EXAM DESCRIPTION: RAD - Chest Single View - 05/29/2020 1:07 am CLINICAL HISTORY: R/O INFITRATE, shortness of breath COMPARISON: June 09, 2019 TECHNIQUE: AP portable chest image was obtained 05/29/2020 1:07 am . FINDINGS: Increased interstitial opacification is present in both lung omer believed to be a chron ic interstitial lung disease pattern. Linear atelectasis seen in the left base. Skin fold artifacts a re present. No focal consolidation or mass lesion identified. Granulomatous type calcifications seen at the right hilum. Heart and vasculature are normal. No measurable pleural effusion and no pneumothorax. No acute bony abnormality seen. No acute aortic findings suspected. IMPRESSION: No focal pneumonia or acute lung parenchymal process identifiable.
[2020-05-29] MEDS: FAMOTIDINE 20 MG TAB PO SCH ×2 (08:03→20:08)
--- NOTE | 2020-05-29 08:32 | RAD REPORT ---
EXAM DESCRIPTION: RAD - Hip Left 2 View - 05/28/2020 11:26 pm CLINICAL HISTORY: PAIN, fall, pelvic and hip pain COMPARISON: No comparisons FINDINGS: AP and cross-table lateral views of the left hip were obtained. Transverse subcapital neck fracture is present with impaction along the medial margin. No dislocation of the femoral head. No intertrochanteric involvement. Hip joint degenerative changes are present mild for age. AVN is not suspected on plain film. No patho logic changes identified. No significant soft tissue finding. IMPRESSION: Minimally impacted left subcapital femoral neck fracture.
[2020-05-29] MEDS ORDERED: LEVOTHYROXINE SOD 0.088 MG TAB PO SCH (09:00)
--- NOTE | 2020-05-29 12:46 | RAD REPORT ---
EXAM DESCRIPTION: CT - [id number] - 05/29/2020 1:10 am CLINICAL HISTORY: 79-year-old male status post fall injury. COMPARISON: 11/08/2019. TECHNIQUE: CT brain without contrast. This exam was performed according to our departmental dose opt imization program which includes use of automated exposure control, adjustment of the mA and/or kV ac cording to patient size and/or use of iterative reconstruction technique. FINDINGS: Multifocal regions of patchy hypoattenuation are present in a subcortical and periventricu lar deep white matter distribution, nonspecific; however, most likely represent small vessel ischemic disease, age indeterminate. The ventricles, and sulci prominence compatible with underlying volume loss. The carl-white matter differentiation is preserved. There is no mass effect, midline shift, intra- or extra-axial fluid c ollection/acute hemorrhage. The osseous structures are unremarkable. The paranasal sinuses reveal complete opacification of the RIGHT maxillary sinus with sclerosis and thickening of the sinus wall, postoperative changes present suggesting sequela of prior trauma. The remaining paranasal sinuses an d mastoid air cells are clear. Postoperative change of the RIGHT anterior maxillary sinus and super olateral orbit. IMPRESSION: 1. No acute intracranial abnormalities. Nonspecific white matter change most likely sm all vessel ischemic disease, age indeterminate. 2. CT is insensitive for early evaluation of acute stroke. If there is clinical concern for acute ischemia, an MRI may be considered. TECHNIQUE: Cervical spine CT was performed without contrast. Multiplanar reformatted images were pro vided. This exam was performed according to our departmental dose optimization program which includes use of automated exposure control, adjustment of the mA and/or kV according to patient size and/or u se of iterative reconstruction technique. COMPARISON: None. FINDINGS: The bones are demineralized limiting evaluation for subtle fracture. There is normal alignment of the cervical spine without fracture or subluxation. The facets are vivienne l in alignment bilaterally. The posterior elements including the spinous processes are intact. Straig htening of the cervical spine which may be secondary to positioning for the examination. Morphology and attenuation of the vertebral bodies and intervertebral disk spaces is compatible with multilevel degenerative change. Multilevel loss of intervertebral disk height. Multilevel posterior osseous spurring results in sever e bilateral neuroforaminal narrowing throughout the cervical spine. Posterior osseous spurring and small disk bulge results in effacement of the ventral thecal sac and m ild central spinal canal narrowing. 3 mm diffuse disk bulge at C3-4. Additional mild diffuse disk bulge and a LEFT paracentral distributi on measuring 3 mm present at C4-5. LEFT paracentral disk osteophyte complex at C5-6 and C6-7. The pre-and paravertebral soft tissues are within normal limits. LEFT apical scarring or sequela of p rior radiation therapy. IMPRESSION: 1. Straightening of the cervical spine which may be secondary to positioning for the exa mination versus spasm. 2. No fracture or acute subluxation. Electronically signed by: Rosa Pate MD 05/28/2020 11:39 PM SITE OPERATIONS MANAGER Due to temporary technical issues with the PACS/Fluency reporting system, reports are being signed by the in house radiologists without review as a courtesy to insure prompt reporting. The interpreting radiologist is fully responsible for the content of the report.
--- NOTE | 2020-05-29 13:13 | EKG ---
Test Date: 2020-05-28 Test Time: 22:37:31 Technician Terminal And Repeater: YVONNE MEASUREMENT RESULTS: Intervals: Rate: 74 VA: 276 QRSD: 78 QT: 392 QTc: 435 [place]: P: 73 VA: 276 QRS: -13 T: 23 INTERPRETIVE STATEMENTS: Sinus rhythm with 1st degree AV block Moderate voltage criteria for LVH, may be normal variant Borderline ECG Compared to ECG 11/11/2019 08:13:48 Left ventricular hypertrophy now present Prolonged QT interval no longer present Electronically Signed On 05-29-20 13:12:24 FEATHER CUTTING MACHINE FEEDER by Alistair Up
[2020-05-29] MEDS: CEFAZOLIN/SWI 2gm 2 GM/20 ML SYR IVP ONE ×2 (14:56→16:56)
--- NOTE | 2020-05-29 15:51 | P.PN ---
Subjective Date of Service: 05/29/20 Chief Complaint: Fall, left hip pain Patient awake and interactive. He complains of pain with movement of left leg. Physical Examination - Vital Signs Temperature: 98.4 F Blood Pressure: 151/74 Pulse: 97 Respirations: 18 Pulse Ox (%): 98 - Physical Exam General: Oriented x1, Other (Awake) Neck: Supple, JVD not distended Respiratory: Clear to auscultation bilaterally, Normal air movement Cardiovascular: No edema, Regular rate/rhythm, Normal S1 S2 Gastrointestinal: Soft and benign, Non-distended, No tenderness Musculoskeletal: No swelling Integumentary: No rashes Neurological: Other (Moves all extremities spontaneously) - Studies Laboratory Data (last 24 hrs) 05/28/20 22:24: PT 13.4 H, INR 1.16, APTT 28.6 05/28/20 22:24: Sodium 142, Potassium 4.3, BUN 18, Creatinine 0.99, Glucose 144 H, Total Bilirubin 0.8, AST 22, ALT 7 L, Alkaline Phosphatase 116 05/28/20 22:24: WBC 8.00, Hgb 12.9 L, Hct 39.4 L, Plt Count 283 Assessment And Plan - Current Problems (Diagnosis) (1) Hip fracture, left Current Visit: Yes Status: Acute (2) History of Parkinson's disease Current Visit: No Status: Acute (3) Sinus tachycardia Current Visit: Yes Status: Acute - Plan Case discussed with orthopedic Dr. Reyes. Patient with no active cardiac issue. No arrhythmia, no chest pain. No history of heart failure. Electrolytes and CBC are optimal Chest x-ray: No infiltrate. Patient clinical condition is optimal for surgery. Pain management as needed. Patient is currently NPO. Resume Parkinson's disease post op. Watch for post-op delirium. PT evaluation postop. Postop DVT prophylaxis per ortho.
[2020-05-29] MEDS ORDERED: TRANEXAMIC ACID 1,000 MG in NA CHLORIDE 0.9% 50 ML IV ONE ×4 (16:00)
[2020-05-29] MEDS ORDERED: Ringers Lactate 1,000 ML IV ONE ×2 (16:19→18:05)
[2020-05-29] MEDS ORDERED: ROCURONIUM 50 MG/5 ML VIAL IV ONE (16:24)
[2020-05-29] MEDS ORDERED: propofoL 200 MG/20 ML VIAL IV ONE (16:24)
[2020-05-29] MEDS ORDERED: FENTANYL CITR 100 MCG/2 ML ONE (16:24)
[2020-05-29] MEDS ORDERED: SUCCINYLCHOLINE 20 MG/ML (10 ML) IV ONE (16:28)
[2020-05-29] MEDS ORDERED: Phenylephrine HCl 10 MG/ML 1 ML VIAL ONE (17:55)
[2020-05-29] MEDS ORDERED: NEOSTIGMINE 1 MG/ML -5 ML ONE (18:00)
[2020-05-29] MEDS ORDERED: GLYCOPYRROLATE 0.2 MG/ML SYR ONE (18:01)
--- NOTE | 2020-05-29 18:23 | OP ---
Surgeon: Jerrod Reyes MD Bobtail Driver: magistrate assistant, Mona. Preoperative Diagnosis: Left hip hemiarthroplasty. Postoperative Diagnosis: Left hip hemiarthroplasty. Procedure Performed: Left hip hemiarthroplasty. Complications: None. Disposition: Recovery in stable. Procedure In Detail: The patient was taken to the operative suite, placed in supine position, induce d anesthesia. Posterior approach to the hip was utilized with left side up. Hemostasis was verified . External rotators were taken down and tagged for later reattachment. A 53 femoral head was delive red. Reaming broach technique for a 15 stem was appropriate. Lateralized option was selected, +3 of fset. Permanent implants placed. A layered closure performed including repair of external rotators through drill holes in bone. TIRSO/DOMINGA Voice ID: [id number] Report ID: [id number]
[2020-05-29] MEDS ORDERED: MEPERIDINE HCL 25 MG/ML SYR ONE (18:39)
[2020-05-29] MEDS ORDERED: HYDROCODONE/APAP 10/325 TAB PO PRN (18:46)
--- NOTE | 2020-05-29 19:07 | RAD REPORT ---
EXAM DESCRIPTION: RAD - Pelvis - 05/29/2020 6:38 pm CLINICAL HISTORY: S/P LEFT HIP SX COMPARISON: No comparisons FINDINGS: Left hip arthroplasty procedure has been performed. A surgical drain and skin vance are noted. No unexpected immediate postoperative finding.
[2020-05-29] MEDS: NACHLORIDE 0.45% 1,000 ML IV SCH (20:07)
[2020-05-30] MEDS: CEFAZOLIN/SWI 1gm 1 GM/10 ML SYR IVP SCH ×2 (00:31→10:58)
[2020-05-30] MEDS: MORPHINE 2 MG/ML SYR IV PRN ×2 (03:45→06:20)
[2020-05-30] MEDS: NACHLORIDE 0.45% 1,000 ML IV SCH ×2 (05:00→20:00)
[2020-05-30] MEDS: LEVOTHYROXINE SOD 0.088 MG TAB PO SCH (05:01)
[2020-05-30 06:08] LABS: Absolute Lymphocytes (CBC) 0.8 K/uL (0.7-4.9); Basophils % 0.5 % (0-1.3); Hematocrit 39.2 % (39.6-49.0); Lymphocytes % 6.9 % (15.3-44.8); RBC Red Blood Cell Count 4.27 M/uL (4.33-5.43)
[2020-05-30 06:40] LABS: ALT/SGPT 25 U/L (12-78); AST/SGOT 31 U/L (15-37); Albumin 3.2 g/dL (3.4-5.0); Alkaline Phosphatase 117 U/L (45-117); BUN Blood Urea Nitrogen 10 mg/dL (7-18); Bicarbonate 26 mmol/L (21-32); Bilirubin Total 2.5 mg/dL (0.2-1.0); Glucose Level 118 mg/dL (74-106); Protein, Total 7.4 g/dL (6.4-8.2); Sodium Level 137 mmol/L (136-145)
[2020-05-30] MEDS ORDERED: MIDAZOLAM HCL 2 MG/2 ML INJ ONE (07:33)
[2020-05-30] MEDS ORDERED: LIDOCAINE 1% MPF 5 ML VIAL ONE (07:33)
[2020-05-30] MEDS ORDERED: propofoL 200 MG/20 ML VIAL IV ONE (07:33)
[2020-05-30] MEDS ORDERED: FENTANYL CITR 100 MCG/2 ML ONE (07:33)
[2020-05-30 07:38] LABS: Blood Morphology Comment NOT SEEN (NOT SEEN); Platelet Estimate ADEQ; White Blood Cell Scan OK (OK)
[2020-05-30] MEDS: CARBIDOPA LEVO PO SCH ×3 (09:00→21:00)
[2020-05-30] MEDS: AMANTADINE 100 MG CAP PO SCH (10:58)
[2020-05-30] MEDS: FAMOTIDINE 20 MG TAB PO SCH ×2 (10:58→21:50)
[2020-05-30] MEDS: FINASTERIDE 5 MG TAB PO SCH (10:58)
[2020-05-30] MEDS: ENOXAPARIN 30 MG/0.3 ML SQ SCH ×2 (10:58→21:50)
--- NOTE | 2020-05-30 18:05 | P.PN ---
Subjective Date of Service: 05/30/20 Chief Complaint: Fall, left hip pain Subjective: No new changes (s/p OR yesterday, pain controlled, reports doing ok, with some confusion/dementia this morning) Review of Systems 10-point ROS is otherwise unremarkable Physical Examination - Vital Signs Temperature: 99 F Blood Pressure: 153/86 Pulse: 100 Respirations: 20 Pulse Ox (%): 96 Assessment & Plan Physician Review Additional Text: Physical Exam General: Oriented x1, awake, NAD Pulm: Clear to auscultation bilaterally, Normal air movement CV: No edema, Regular rate/rhythm, Normal S1 S2 abd: Soft and benign, Non-distended, No tenderness Ext: no rash, no lesions Neuro: moves all extremities spontaneously Problem List Hip fracture, left History of Parkinson's disease Sinus tachycardia s/p OR fixation with Ortho Doing well post-op Patient with no active cardiac issue. No arrhythmia, no chest pain. No history of heart failure. Pain management as needed. Resume Parkinson's disease monitor for post-op delirium PT evaluation postop. Postop DVT prophylaxis per ortho. Time Spent Managing Pts Care (In Minutes): 35
[2020-05-31] MEDS: NACHLORIDE 0.45% 1,000 ML IV SCH ×3 (00:10→13:51)
[2020-05-31 05:55] LABS: Absolute Lymphocytes (CBC) 0.6 K/uL (0.7-4.9); Basophils % 0.3 % (0-1.3); Hematocrit 37.9 % (39.6-49.0); Lymphocytes % 3.6 % (15.3-44.8); MPV 8.7 fL (7.6-11.3); RBC Red Blood Cell Count 4.18 M/uL (4.33-5.43)
[2020-05-31] MEDS: LEVOTHYROXINE SOD 0.088 MG TAB PO SCH (06:04)
[2020-05-31 06:14] LABS: Albumin 2.8 g/dL (3.4-5.0); Magnesium 2.2 mg/dL (1.8-2.4); Protein, Total 7.1 g/dL (6.4-8.2)
[2020-05-31 07:27] LABS: Platelet Estimate ADEQ; White Blood Cell Scan OK (OK)
[2020-05-31 07:28] LABS: Blood Morphology Comment NOT SEEN (NOT SEEN)
[2020-05-31] MEDS: CARBIDOPA LEVO PO SCH ×3 (09:00→21:31)
[2020-05-31] MEDS: FINASTERIDE 5 MG TAB PO SCH (09:17)
[2020-05-31] MEDS: ENOXAPARIN 30 MG/0.3 ML SQ SCH ×2 (09:17→21:31)
[2020-05-31] MEDS: AMANTADINE 100 MG CAP PO SCH (09:17)
--- NOTE | 2020-05-31 09:31 | P.PN ---
Subjective Date of Service: 06/01/20 Chief Complaint: Fall, left hip pain Subjective: No new changes (has issues with swallow and there is concerns about aspiration.) Physical Examination - Vital Signs Temperature: 98.5 F Blood Pressure: 149/81 Pulse: 93 Respirations: 20 Pulse Ox (%): 96 Assessment And Plan Physician Review Additional Text: Physical Exam General: Oriented x1, awake, NAD Pulm: Clear to auscultation bilaterally, Normal air movement CV: No edema, Regular rate/rhythm, Normal S1 S2 abd: Soft and benign, Non-distended, No tenderness Ext: no rash, no lesions Neuro: moves all extremities spontaneously Problem List Hip fracture, left History of Parkinson's disease Sinus tachycardia s/p HERLINDA fixation with Ortho Doing well post-op. Patient with no active cardiac issue. No arrhythmia, no chest pain. No history of heart failure. Pain management as needed. Resume Parkinson's disease monitor for post-op delirium PT evaluation postop. Postop DVT prophylaxis per ortho.
[2020-05-31] MEDS: FAMOTIDINE 20 MG TAB PO SCH ×2 (10:47→21:31)
[2020-05-31] MEDS: HYDRALAZINE HCL 20 MG/ML VIAL IV PRN (16:16)
[2020-05-31 19:25] LABS: Urine Appearance CLOUDY; Urine Bilirubin NEGATIVE (NEG); Urine Blood 3+ (NEG); Urine Color YELLOW; Urine Glucose NEGATIVE (NEG); Urine Protein NEGATIVE (NEG); Urine Specific Gravity 1.015 (1.005-1.030); Urine Urobilinogen 0.2 mg/dL (0.2-1.0)
[2020-05-31 19:29] LABS: Urine Microscopic Reflex ORDER UMIC
[2020-05-31 20:13] LABS: Urine Bacteria <20 /HPF (NONE SEEN); Urine RBC 20-50 /HPF (NONE SEEN)
[2020-06-01] MEDS: NACHLORIDE 0.45% 1,000 ML IV SCH ×3 (03:29→22:00)
[2020-06-01] MEDS: LEVOTHYROXINE SOD 0.088 MG TAB PO SCH (05:54)
[2020-06-01 06:40] LABS: Absolute Lymphocytes (CBC) 0.6 K/uL (0.7-4.9); Basophils % 0.4 % (0-1.3); Hematocrit 39.8 % (39.6-49.0); Lymphocytes % 3.9 % (15.3-44.8); MPV 9.1 fL (7.6-11.3); RBC Red Blood Cell Count 4.35 M/uL (4.33-5.43)
--- NOTE | 2020-06-01 07:02 | P.PN ---
Subjective Date of Service: 06/01/20 Chief Complaint: Fall, left hip pain Subjective: No new changes Physical Examination - Vital Signs Temperature: 98.5 F Blood Pressure: 149/81 Pulse: 93 Respirations: 20 Pulse Ox (%): 96 Assessment And Plan Physician Review Additional Text: Physical Exam General: Oriented x1, awake, NAD Pulm: Clear to auscultation bilaterally, Normal air movement CV: No edema, Regular rate/rhythm, Normal S1 S2 abd: Soft and benign, Non-distended, No tenderness Ext: no rash, no lesions Neuro: moves all extremities spontaneously Problem List Hip fracture, left History of Parkinson's disease Sinus tachycardia Elevated blood pressure. Plan: s/p HERLINDA fixation with Ortho Doing well post-op. Patient with no active cardiac issue. No arrhythmia, no chest pain. No history of heart failure. Pain management as needed. Resume Parkinson's disease monitor for post-op delirium PT evaluation postop. Postop DVT prophylaxis per ortho. Concerns about swallow raised yesterday. Speech therapist to evaluate. we will monitor blood pressure closely for possible adjustment of medical therapy.
[2020-06-01] MEDS: FINASTERIDE 5 MG TAB PO SCH (09:55)
[2020-06-01] MEDS: FAMOTIDINE 20 MG TAB PO SCH ×2 (09:55→21:33)
[2020-06-01] MEDS: ENOXAPARIN 30 MG/0.3 ML SQ SCH ×2 (09:56→21:35)
[2020-06-01] MEDS: CARBIDOPA LEVO PO SCH ×3 (09:56→21:35)
[2020-06-01] MEDS: AMANTADINE 100 MG CAP PO SCH (10:04)
[2020-06-02] MEDS: LEVOTHYROXINE SOD 0.088 MG TAB PO SCH (06:39)
--- NOTE | 2020-06-02 08:25 | P.PN ---
Subjective Date of Service: 06/02/20 Chief Complaint: Fall, left hip pain Subjective: No new changes, Other (still has swallow issues.) Physical Examination - Vital Signs Temperature: 97.6 F Blood Pressure: 135/97 Pulse: 101 Respirations: 18 Pulse Ox (%): 95 Assessment And Plan Physician Review Additional Text: Physical Exam General: Oriented x1, awake, NAD Pulm: Clear to auscultation bilaterally, Normal air movement CV: No edema, Regular rate/rhythm, Normal S1 S2 abd: Soft and benign, Non-distended, No tenderness Ext: no rash, no lesions Neuro: moves all extremities spontaneously Problem List Hip fracture, left History of Parkinson's disease Sinus tachycardia Elevated blood pressure. Plan: s/p HERLINDA fixation with Ortho Doing well post-op. Patient with no active cardiac issue. No arrhythmia, no chest pain. No history of heart failure. Pain management as needed. Resume Parkinson's disease. monitor for post-op delirium. PT evaluation postop. Postop DVT prophylaxis per ortho. Concerns about swallow raised. Speech therapist to evaluate. we will monitor blood pressure closely for possible adjustment of medical therapy.
[2020-06-02] MEDS: NACHLORIDE 0.45% 1,000 ML IV SCH ×2 (09:34→21:18)
[2020-06-02] MEDS: ENOXAPARIN 30 MG/0.3 ML SQ SCH ×2 (09:35→20:31)
[2020-06-02] MEDS: FAMOTIDINE 20 MG TAB PO SCH ×2 (10:52→20:34)
[2020-06-02] MEDS: CARBIDOPA LEVO PO SCH ×3 (10:52→20:33)
[2020-06-02] MEDS: FINASTERIDE 5 MG TAB PO SCH (10:52)
[2020-06-02] MEDS: AMANTADINE 100 MG CAP PO SCH (10:52)
--- NOTE | 2020-06-02 17:33 | P.PN ---
Subjective Date of Service: 06/02/20 Chief Complaint: Fall, left hip pain Subjective: No new changes Review of Systems is unable to be obtained Physical Examination - Vital Signs Temperature: 97.7 F Blood Pressure: 164/87 Pulse: 72 Respirations: 16 Pulse Ox (%): 94 - Physical Exam Musculoskeletal: Other (dressinds c/c/i) Assessment And Plan - Current Problems (Diagnosis) (1) History of left hip hemiarthroplasty Current Visit: Yes Status: Acute Plan: may be discharged to [facility] with walker, hip precautions. follow up in office 2 weeks postop. anticoagulat 28 days Discharge Plan: Alf Physician Review Additional Text: Physical Exam General: Oriented x1, awake, NAD Pulm: Clear to auscultation bilaterally, Normal air movement CV: No edema, Regular rate/rhythm, Normal S1 S2 abd: Soft and benign, Non-distended, No tenderness Ext: no rash, no lesions Neuro: moves all extremities spontaneously Problem List Hip fracture, left History of Parkinson's disease Sinus tachycardia Elevated blood pressure. Plan: s/p HERLINDA fixation with Ortho Doing well post-op. Patient with no active cardiac issue. No arrhythmia, no chest pain. No history of heart failure. Pain management as needed. Resume Parkinson's disease. monitor for post-op delirium. PT evaluation postop. Postop DVT prophylaxis per ortho. Concerns about swallow raised. Speech therapist to evaluate. we will monitor blood pressure closely for possible adjustment of medical therapy.
[2020-06-03] MEDS: LEVOTHYROXINE SOD 0.088 MG TAB PO SCH (05:46)
[2020-06-03 07:48] LABS: ALT/SGPT 8 U/L (12-78); AST/SGOT 16 U/L (15-37); Albumin 2.6 g/dL (3.4-5.0); Alkaline Phosphatase 83 U/L (45-117); BUN Blood Urea Nitrogen 25 mg/dL (7-18); Bicarbonate 30 mmol/L (21-32); Bilirubin Total 1.7 mg/dL (0.2-1.0); Glucose Level 112 mg/dL (74-106); Magnesium 2.2 mg/dL (1.8-2.4); Protein, Total 7.1 g/dL (6.4-8.2); Sodium Level 141 mmol/L (136-145)
--- NOTE | 2020-06-03 10:26 | RAD REPORT ---
EXAM DESCRIPTION: RAD - Chest Single View - 06/03/2020 10:13 am CLINICAL HISTORY: cough, difficulty swallowing COMPARISON: Portable May 29 TECHNIQUE: AP portable chest image was obtained 06/03/2020 10:13 am . FINDINGS: Lung volumes are very low compared to prior study. Left hemidiaphragm elevation again note d. Retrocardiac left base assessment very limited. Upper left lung field in the right lung field are clear of any new mass or infiltrate. No significant failure or volume overload findings identified. Heart and vasculature are normal. No measurable pleural effusion and no pneumothorax. No acute bony abnormality seen. No acute aortic findings suspected. IMPRESSION: Chest examination is limited as detailed. No acute cardiopulmonary finding confirmed.
[2020-06-03] MEDS: FAMOTIDINE 20 MG TAB PO SCH ×2 (10:42→22:08)
[2020-06-03] MEDS: CARBIDOPA LEVO PO SCH ×3 (10:42→22:08)
[2020-06-03] MEDS: FINASTERIDE 5 MG TAB PO SCH (10:42)
[2020-06-03] MEDS: AMANTADINE 100 MG CAP PO SCH (10:43)
[2020-06-03] MEDS: ENOXAPARIN 30 MG/0.3 ML SQ SCH ×2 (10:43→22:07)
[2020-06-03] MEDS: MORPHINE 2 MG/ML SYR IV PRN (13:54)
--- NOTE | 2020-06-03 14:29 | P.PN ---
Subjective Date of Service: 06/03/20 Chief Complaint: Fall, left hip pain Subjective: No new changes (very fatigued appearing, weak voice, confused, oriented x1-2. reports mild pain in back, breathing "ok") Review of Systems 10-point ROS is otherwise unremarkable Physical Examination - Vital Signs Temperature: 97.7 F Blood Pressure: 168/81 Pulse: 96 Respirations: 18 Pulse Ox (%): 97 Assessment & Plan Physician Review Additional Text: Physical Exam General: Oriented x1, awake HEENT: normal conjunctiva, PERRL Pulm: mild bibasilar crackles, dimisihed air entry CV: RRR, no murmur, no edema abd: Soft, NTND Ext: no rash, no lesions Neuro: moves all extremities, following basic commands. answers questions - difficult to understand at times Problem List Hip fracture, left History of Parkinson's disease Sinus tachycardia Elevated blood pressure. s/p HERLINDA fixation with Ortho reportedly with difficulty swallowing post-operatively spoke with family today - report patient is more confused / weak / difficult to understand since out of surgery. state he has some "bad days", but on good days he's mostly independent continue parkinson medications - carvidopa/levodopa. Family state recently re- started on nuplazid (2nd time) and again notice he was "not himself" since starting it, with more confusion/agitation PT evaluation postop. Postop DVT prophylaxis per ortho. Speech therapy evaluated patient patient with minimal PO intake postoperatively, discussed with family, will place dobhoff, start tube feeds CXR today with no significant change Dispo: to SNF once improved Time Spent Managing Pts Care (In Minutes): 35
--- NOTE | 2020-06-03 14:56 | RAD REPORT ---
EXAM DESCRIPTION: RAD - Chest Single View - 06/03/2020 2:38 pm CLINICAL HISTORY: Device placement Dobhoff tube placement IMPRESSION: A Dobhoff tube has been placed into the proximal stomach. It is coiled with the tip poin ting cranially. The tip lies 1.3 centimeters from the GE junction
[2020-06-03] MEDS ORDERED: JEVITY 1.5 CAL LIQUID 1,000 ML BOT FT SCH (15:00)
--- NOTE | 2020-06-03 18:28 | RAD REPORT ---
EXAM DESCRIPTION: RAD - Chest Single View - 06/03/2020 6:19 pm CLINICAL HISTORY: Device placement Dobhoff tube placement IMPRESSION: The tip of a Dobhoff tube lies within the gastric body
[2020-06-03] MEDS: JEVITY 1.2 CAL LIQUID 1,000 ML BOT RTH SCH (22:38)
[2020-06-04] MEDS ORDERED: NACHLORIDE 0.45% 500 ML IV ONE (01:18)
[2020-06-04] MEDS: HYDRALAZINE HCL 20 MG/ML VIAL IV PRN (05:08)
[2020-06-04] MEDS: LEVOTHYROXINE SOD 0.088 MG TAB PO SCH (05:33)
[2020-06-04 06:59] LABS: Absolute Lymphocytes (CBC) 0.6 K/uL (0.7-4.9); Basophils % 0.1 % (0-1.3); Hematocrit 36.2 % (39.6-49.0); Lymphocytes % 5.4 % (15.3-44.8); MPV 9.1 fL (7.6-11.3); RBC Red Blood Cell Count 3.99 M/uL (4.33-5.43)
[2020-06-04 07:14] LABS: ALT/SGPT 9 U/L (12-78); AST/SGOT 15 U/L (15-37); Albumin 2.5 g/dL (3.4-5.0); Alkaline Phosphatase 82 U/L (45-117); BUN Blood Urea Nitrogen 24 mg/dL (7-18); Bicarbonate 26 mmol/L (21-32); Bilirubin Total 1.9 mg/dL (0.2-1.0); Glucose Level 128 mg/dL (74-106); Magnesium 2.2 mg/dL (1.8-2.4); Potassium 3.8 mmol/L (3.5-5.1); Protein, Total 6.8 g/dL (6.4-8.2); Sodium Level 142 mmol/L (136-145)
[2020-06-04] MEDS ORDERED: METOPROLOL TARTRATE 5 MG/5 ML INJ IV STA (08:26)
[2020-06-04] MEDS: FINASTERIDE 5 MG TAB PO SCH (09:00)
[2020-06-04] MEDS: CARBIDOPA LEVO PO SCH ×3 (09:00→22:58)
[2020-06-04] MEDS: FAMOTIDINE 20 MG TAB PO SCH ×2 (09:00→22:57)
[2020-06-04] MEDS: AMANTADINE 100 MG CAP PO SCH (09:00)
--- NOTE | 2020-06-04 09:20 | RAD REPORT ---
EXAM DESCRIPTION: RAD - Chest Single View - 06/04/2020 9:02 am CLINICAL HISTORY: hx ruptured spleen, shortness of breath COMPARISON: Portable June 03 TECHNIQUE: AP portable chest image was obtained 06/04/2020 9:02 am . FINDINGS: Lung volumes remain very low. Parenchymal stranding in the left base has not changed. No n ew or progressive failure or volume overload. Heart and vasculature are normal. No measurable pleural effusion and no pneumothorax. No acute bony abnormality seen. No acute aortic findings suspected. Fe eding tube traverses the midline chest. IMPRESSION: Exam remains limited due to low lung volumes. No significant change from June 03.
--- NOTE | 2020-06-04 09:23 | RAD REPORT ---
EXAM DESCRIPTION: RAD - Abdomen 1 View (KUB) - 06/04/2020 9:02 am CLINICAL HISTORY: hx ruptured spleen , abdominal pain COMPARISON: None FINDINGS: Feeding tube is in place with the tip in the body of the stomach. No free air or pneumatos is. Air and stool distended do not dilate the colon from mid ascending colon to mid descending colon. Stool is present in nondilated rectum. No dilated small bowel loops seen. Pelvic floor phleboliths are present. Recently placed left bipolar hip prosthesis in place. Skin vance are still present lateral to the hip joint. Advanced bony degenerative changes are present. IMPRESSION: Air and stool are present distending but not dilating the colon from mid ascending to mi d descending portions. Stool is present in the rectum. No small bowel dilatation, free air or emergent finding.
--- NOTE | 2020-06-04 10:17 | P.PN ---
Subjective Date of Service: 06/04/20 Chief Complaint: Fall, left hip pain Subjective: Other (patient with sinus tachycardia in 120s this morning, review of telemetry reveal patient with HR up to 180 for 20-30 seconds overnight - narrow complex tachycardia. patient awake, minimally responding with one words, slow to respond, tachypneic) Physical Examination - Vital Signs Temperature: 99.4 F Blood Pressure: 132/72 Pulse: 94 Respirations: 21 Pulse Ox (%): 92 Assessment & Plan Physician Review Additional Text: Physical Exam General: Oriented x1, awake, lethargic HEENT: normal conjunctiva, PERRL Pulm: mild bibasilar crackles, dimisihed air entry throughout, tachypneic CV: sinus tachycardia 120s, no murmur, no edema abd: mild distention in epigastric region / above umbilicus, difficult to ascertain if tender, possible mild tenderness Ext: no rash, no lesions, surgical site with dressing c/d/i Neuro: moves extremities, squeezes hand on command Problem List Hip fracture, left; s/o ORIF History of Parkinson's disease Sinus tachycardia, SVT Elevated blood pressure. s/p HERLINDA fixation with Ortho; reportedly with difficulty swallowing post- operatively spoke with family- report patient is more confused / weak / difficult to understand since out of surgery. state he has some "bad days", but on good days he's mostly independent -likely multifactorial, patient chronic ischemic changes, Parkinson's /dementia, and surgery will increase his risk for postoperative delirium. Family report the patient was speaking somewhat confused before coming into the hospital. Possible stroke, will repeat CT brain today continue parkinson medications - carvidopa/levodopa. Family state recently re- started on nuplazid (2nd time) and again notice he was "not himself" since starting it, with more confusion/agitation. do not want this medication given to him, and he has not received while hospitalized Patient with minimal p.o. intake, discuss with family on 06/03, Dobhoff placed 06/03 Patient was slight distension of his abdomen today, possible tenderness. Last BM 2-3 days ago, hold tube feeds, obtain CT abdomen/pelvis Tachycardia and tachypnea, given recent fall/fracture, will obtain CTA chest to rule out PE Postop DVT prophylaxis per ortho. - on therapeutic Lovenox Speech therapy evaluated patient low grade temperature today as well, will obtain blood culture, leukocytosis and mildly elevated procal trending down without antibiotics Dispo: hospitalization > 2days; anticipate SNF once improved discussed plan of care with , discussed possible need for PEG tube if prolonged dysphagia Time Spent Managing Pts Care (In Minutes): 45
--- NOTE | 2020-06-04 11:50 | RAD REPORT ---
EXAM DESCRIPTION: CT - Head Brain Wo Cont - 06/04/2020 11:20 am CLINICAL HISTORY: r/o CVA, dysphagia, weakness COMPARISON: Head C Spine Mpr Wo Con dated 05/28/2020 TECHNIQUE: Axial 5 mm thick images of the head were obtained without IV contrast. All CT scans are performed using dose optimization technique as appropriate and may include automated exposure control or mA/KV adjustment according to patient size. FINDINGS: No intracranial hemorrhage, mass, edema or shift of mid-line structures. No acute cortical based infarction identified. No cortical edema or sulcal effacement. Moderate cerebral and mild cere bellar atrophy changes are present. Ventricles are in proportion to volume loss. Chronic ischemic oren nges are seen in the cerebral white matter extending into each basal ganglia in the left thalamus. Br ainstem chronic ischemic change is suspected as well. Arterial tree calcifications are present. Mastoid air cells and visualized portions of the paranasal sinuses are clear. No acute bony findings. IMPRESSION: Mild to moderate atrophy changes of the cerebral and cerebellar hemispheres present with ventricles in proportion to volume loss. No acute intracranial finding. Extensive chronic ischemic changes are present potentially masking acu te nonhemorrhagic CVA. Ongoing concerns for acute CVA can be addressed with MR imaging.
--- NOTE | 2020-06-04 11:54 | RAD REPORT ---
EXAM DESCRIPTION: CT - Chest For Pe Angio - 06/04/2020 11:34 am CLINICAL HISTORY: r/o PE COMPARISON: Chest For Pe Angio dated 06/09/2019; Chest Single View dated 06/04/2020 TECHNIQUE: Dynamically enhanced 3 mm thick images of the chest were obtained during administration o f approximately 150mL Isovue 370 IV contrast. Coronal and oblique MIP reconstruction images were gene rated and reviewed. Exam utilizes a protocol to evaluate the pulmonary arterial tree. All CT scans are performed using dose optimization technique as appropriate and may include automated exposure control or mA/KV adjustment according to patient size. FINDINGS: No pulmonary emboli are identified. The aorta as imaged shows no acute or suspicious finding. No pericardial thickening or effusion. Bilateral lung base atelectasis present. There is additional right lung base alveolar opacification a nd a concurrent mild pneumonia in the right base is possible. This needs correlation with clinical pr esentation. Left hemidiaphragm elevation is present. Bilateral upper lobes and right middle lobe are clear. Underlying COPD changes are evident. No pleural effusion or pleural thickening. No mediastinal or hilar suspicious masses. No chest wall masses or abnormal axillary lymphadenopathy. IMPRESSION: No pulmonary emboli identified. Bilateral lung base atelectasis present and this potentially masks minimal infiltrate in the right ena ng base.
--- NOTE | 2020-06-04 12:02 | RAD REPORT ---
EXAM DESCRIPTION: CT - Abdomen Pelvis W Contrast - 06/04/2020 11:35 am CLINICAL HISTORY: abdominal pain, distention COMPARISON: No comparisons TECHNIQUE: Biphasic, helical CT imaging of the abdomen and pelvis was performed following 100 ml non -ionic IV contrast. No oral contrast administered. All CT scans are performed using dose optimization technique as appropriate and may include automated exposure control or mA/KV adjustment according to patient size. FINDINGS: Lung base findings are detailed in separate CT chest report. Feeding tube is in place with the tip in the body of the stomach. No focal liver abnormality seen. Cholecystectomy clips are present with no abnormal biliary tree dila tation. Atrophy changes of the pancreas are present. No primary pancreatic process identifiable. Sple en is absent. Small splenic nodule remnants are seen in the left upper quadrant. Left hemidiaphragm e levation is present. Renal function is symmetric. Small cortical cysts are present. Parenchymal opacification is somewhat heterogeneous but probably not pyelonephritis or other acute parenchymal process. There is mild right -sided moderate left-sided hydronephrosis. No nonobstructing calculi seen. Ureters are difficult to f ollow along the entire course. [place] artifact from left hip prosthesis limits ability to evaluate for small UVJ calculi. The patient has multiple phleboliths along the pelvic floor. Dilated urinary blad stefan is present without wall thickening or mass identified. No bladder stones seen. Prostate gland is not appear abnormally enlarged. No adrenal abnormalities. Stomach is decompressed. No dilated small bowel loops. Rectum is dilated to 10 cm by stool. Moderate stool volume elsewhere in the colon more pronounced along the right side. An obstructing mass is not identified. Appendix is difficult to uniquely identified. Acute appendicitis is not suspected. No free air or pneumatosis. No abnormal free fluid collection. There is fluid retention in the subcut aneous fatty tissues and to a lesser degree peritoneal fatty tissues. No hernia, mass or bulky lymph adenopathy. No suspicious bony findings. Prominent bony degenerative changes are present. Dense arterial tree calcifications are present. IMPRESSION: No bowel obstruction, free air or surgically emergent finding identifiable. Patient has significant bilateral hydronephrosis but no obstructing calculus confirmed. The urinary b ladder is dilated and hydronephrosis is probably functional from the urinary bladder retention. Pros tatic urethral obstruction or similar outflow track abnormality is suspected. Rectum is dilated by stool to 10 cm in diameter. Prominent stool volume throughout the rest of the co mauricio. Stomach is decompressed with feeding tube in place. No acute small bowel finding.
[2020-06-04] MEDS: NACHLORIDE 0.45% 1,000 ML IV SCH ×3 (12:30→12:41)
[2020-06-04] MEDS: ENOXAPARIN 30 MG/0.3 ML SQ SCH ×2 (12:40→22:57)
[2020-06-04] MEDS: METOPROLOL TAR 25 MG TAB PO SCH ×2 (13:47→20:38)
[2020-06-04] MEDS ORDERED: FLEET ENEMA ADULT PR ONE (14:00)
[2020-06-04] MEDS: LEVALBUTEROL 0.63 MG/3 ML NEB NEB SCH ×2 (15:08→22:50)
[2020-06-04 15:14] LABS: Urine Appearance CLEAR; Urine Bilirubin NEGATIVE (NEG); Urine Blood NEGATIVE (NEG); Urine Color YELLOW; Urine Glucose NEGATIVE (NEG); Urine Protein NEGATIVE (NEG); Urine Specific Gravity 1.015 (1.005-1.030); Urine Urobilinogen 0.2 mg/dL (0.2-1.0)
[2020-06-04 15:18] LABS: Urine Microscopic Reflex NO UMIC
[2020-06-05] MEDS: NACHLORIDE 0.45% 1,000 ML IV SCH ×3 (01:00→13:30)
[2020-06-05] MEDS: LEVOTHYROXINE SOD 0.088 MG TAB PO SCH (05:21)
[2020-06-05] MEDS: METOPROLOL TAR 25 MG TAB PO SCH ×2 (05:21→17:06)
[2020-06-05 05:56] LABS: Absolute Lymphocytes (CBC) 0.8 K/uL (0.7-4.9); Basophils % 0.4 % (0-1.3); Hematocrit 35.3 % (39.6-49.0); Lymphocytes % 8.3 % (15.3-44.8); MPV 8.3 fL (7.6-11.3); RBC Red Blood Cell Count 3.88 M/uL (4.33-5.43)
[2020-06-05 06:14] LABS: ALT/SGPT 9 U/L (12-78); AST/SGOT 16 U/L (15-37); Albumin 2.2 g/dL (3.4-5.0); Alkaline Phosphatase 71 U/L (45-117); BUN Blood Urea Nitrogen 18 mg/dL (7-18); Bicarbonate 28 mmol/L (21-32); Bilirubin Total 1.1 mg/dL (0.2-1.0); Glucose Level 140 mg/dL (74-106); Potassium 3.5 mmol/L (3.5-5.1); Protein, Total 6.2 g/dL (6.4-8.2); Sodium Level 144 mmol/L (136-145)
[2020-06-05] MEDS: LEVALBUTEROL 0.63 MG/3 ML NEB NEB SCH ×3 (07:54→23:00)
[2020-06-05] MEDS: ENOXAPARIN 30 MG/0.3 ML SQ SCH ×3 (09:38→22:31)
[2020-06-05] MEDS: FINASTERIDE 5 MG TAB PO SCH (09:39)
[2020-06-05] MEDS: CARBIDOPA LEVO PO SCH ×3 (09:39→21:00)
[2020-06-05] MEDS: AMANTADINE 100 MG CAP PO SCH (09:39)
[2020-06-05] MEDS: FAMOTIDINE 20 MG TAB PO SCH ×3 (09:39→22:31)
--- NOTE | 2020-06-05 12:12 | PN ---
Date of Progress Note: 06/05/2020 Mr. Quintana has been followed for SVT. He had come in with a hip fracture. He was started on metoprol ol 12.5 mg b.i.d., has had 1 episode of VT, this lasted a minute and half. Since then, no hemodynami c compromise. No symptoms with it. Echocardiogram is pending for today. I would definitely increas e his beta-dylan dose to 25 mg b.i.d. The case was discussed with Dr. Duong. We will continue to follow. RIRI/DOMINGA Voice ID: [id number] Report ID: [id number]
[2020-06-05] MEDS: JEVITY 1.2 CAL LIQUID 1,000 ML BOT RTH SCH (14:30)
--- NOTE | 2020-06-05 17:13 | P.PN ---
Subjective Date of Service: 06/05/20 Chief Complaint: Fall, left hip pain Subjective: Improving (breathing slightly more comfortably with scheduled nebs. very weak, weak voice, masked facies. tolerating dobhoff feeds, had good / large BM yesterday) Review of Systems 10-point ROS is otherwise unremarkable Physical Examination - Vital Signs Temperature: 99.1 F Blood Pressure: 127/58 Pulse: 97 Respirations: 18 Pulse Ox (%): 94 Assessment & Plan Physician Review Additional Text: Physical Exam General: Oriented x1, awake, lethargic, squeezes hand on command and in response to questions HEENT: normal conjunctiva, masked facies Pulm: mild R basilar rhonchi, diminished air entry throughout, shallow respirations CV: regular rate and rhythm, occasional sinus tachycardia (90s), no murmur, no edema abd: soft, NTND Ext: no rash, no lesions, surgical site with dressing c/d/i Neuro: squeezes hand on command and in response to questions Problem List Hip fracture, left; s/o ORIF History of Parkinson's disease Sinus tachycardia, SVT Elevated blood pressure. s/p HERLINDA fixation with Ortho; with difficulty swallowing post-operatively spoke with family- report patient is more confused / weak / difficult to understand since out of surgery. state he has some "bad days", but on good days he's mostly independent -likely multifactorial, patient chronic ischemic changes, Parkinson's /dementia, and surgery will increase his risk for postoperative delirium. Family report the patient was speaking somewhat confused before coming into the hospital. Possible stroke, CT brain 06/04 no acute stroke. obtain MRI to r/o stroke Neurology consulted - patient's neurologist is Dr. Reyna Patient missed nearly 2 days of carvidopa/levodopa on day of surgery and POD1 due to not having medication available - this combined with surgery is likely causing an acute worsening/"exacerbation" of his parkinson's symptoms - masked facies, weakness, mild stiffness continue parkinson medications - carvidopa/levodopa. Family state recently re- started on nuplazid (2nd time) and again notice he was "not himself" since starting it, with more confusion/agitation. do not want this medication given to him, and he has not received while hospitalized Patient with minimal p.o. intake, discuss with family on 06/03, Dobhoff placed 06/03. tolerated tube feeds Had Tachycardia and tachypnea, given recent fall/fracture, obtained CTA - however negative for PE Postop DVT prophylaxis per ortho. - on therapeutic Lovenox Speech therapy consulted Dispo: hospitalization > 2days; anticipate SNF once improved discussed plan of care with , discussed possible need for PEG tube if prolonged dysphagia Time Spent Managing Pts Care (In Minutes): 35
--- NOTE | 2020-06-05 18:39 | CON ---
Date of Consultation: 06/04/2020 Reason For Consultation: Tachycardia. History Of Present Illness: This is an 79-year-old male with history of Parkinson disease, coronary artery disease, hypothyroidism, debilitated. The patient presented after a fall and has been having low-grade fever. He is tachycardic at one point and it appears to be sinus tachycardia. After givin g IV Lopressor, his heart rate went down, it was clearly sinus tachycardia. There are no specific ca rdiac complaints. Past Medical History: As outlined above in the HPI. Medications: Refer consultation sheet for detailed list. Allergies: NO KNOWN DRUG ALLERGIES. Family History: No premature coronary artery disease, cancer. Social History: Does not smoke or drink. Does not use any drugs. Review of Systems: All systems reviewed and they were negative except for what is mentioned in the HPI. Physical Examination: Vital Signs: Temperature was 98.8, pulse is 95, breathing at 18, blood pressure 143/71, saturating 9 2%. General: Pleasant elderly male, in no distress. Head and Neck: Pupils are equal, reactive to light. Intact eye movements. No JVD. No cervical lym phadenopathy. Neck is supple. Thyroid is not enlarged. Lungs: Clear to auscultation bilaterally. No rhonchi, rales, or crackles. No accessory muscle use. Heart: Regular rate and rhythm. No extra sounds. Abdomen: Soft, nontender. Bowel sounds positive. No organomegaly. No rigidity or rebound. Extremities: No edema, clubbing, or cyanosis. Skin: No rash. Neurologic: Alert, awake. No acute focal deficits appreciated. Investigations: Sodium 42, creatinine 0.76. White blood count 7.8, hemoglobin 12.2. Assessment And Plan: Tachycardia, narrow complex, likely sinus tachycardia in response to infection. Recommend to do a CTA of the lungs to rule out pulmonary embolism as a cause as well, as he is not mobile. Toprol 12.5 mg twice a day started. Continue to monitor on telemetry, and further plan acco rding to above. Please obtain echocardiogram. Thank you for the consult. /DOMINGA Voice ID: [id number] Report ID: [id number]
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
[2020-06-05] MEDS ORDERED: CARBIDOPA/LEVODOPA 25/100 TAB FT SCH (22:30)
[2020-06-05] MEDS: CARBIDOPA/LEVODOPA 25/100 TAB FT SCH (22:32)
[2020-06-06] MEDS: NACHLORIDE 0.45% 1,000 ML IV SCH ×2 (01:15→14:30)
[2020-06-06] MEDS: METOPROLOL TAR 25 MG TAB PO SCH ×2 (05:15→17:02)
[2020-06-06] MEDS: LEVOTHYROXINE SOD 0.088 MG TAB PO SCH (05:15)
[2020-06-06 06:02] LABS: Absolute Lymphocytes (CBC) 0.7 K/uL (0.7-4.9); Basophils % 0.4 % (0-1.3); Hematocrit 33.8 % (39.6-49.0); Lymphocytes % 5.9 % (15.3-44.8); MPV 8.1 fL (7.6-11.3); RBC Red Blood Cell Count 3.72 M/uL (4.33-5.43)
[2020-06-06 06:13] LABS: ALT/SGPT 13 U/L (12-78); AST/SGOT 14 U/L (15-37); Albumin 2.2 g/dL (3.4-5.0); Alkaline Phosphatase 71 U/L (45-117); BUN Blood Urea Nitrogen 13 mg/dL (7-18); Bicarbonate 31 mmol/L (21-32); Bilirubin Total 0.7 mg/dL (0.2-1.0); Glucose Level 144 mg/dL (74-106); Magnesium 1.9 mg/dL (1.8-2.4); Potassium 3.5 mmol/L (3.5-5.1); Sodium Level 143 mmol/L (136-145)
[2020-06-06] MEDS: LEVALBUTEROL 0.63 MG/3 ML NEB NEB SCH ×3 (07:55→23:10)
--- NOTE | 2020-06-06 09:24 | ECHO ---
HEIGHT: 5 ft 6 in WEIGHT: 159 lb 1.6 oz DATE OF STUDY: 06/05/[address]: Alistair Up MD 2-DIMENSIONAL: YES M.MODE: YES DOPPLER: YES COLOR FLOW: YES TDS: NO PORTABLE: NO DEFINITY: NO BUBBLE STUDY: NO DIAGNOSIS: SUPRAVENTRICULAR TACHYCARDIA CARDIAC HISTORY: CATHERIZATION: SURGERY: PROSTHETIC VALVE: PACEMAKER: MEASUREMENTS (cm) DIASTOLIC (NORMALS) SYSTOLIC (NORMALS) IVSd 1.0 (0.6-1.2) LA Diam (1.9-4.0) LVEF 65% LVIDd 3.2 (3.5-5.7) LVIDs 2.1 (2.0-3.5) %FS 34% LVPWd 1.0 (0.6-1.2) Ao Diam 2.8 (2.0-3.7) 2 DIMENSIONAL ASSESSMENT: RIGHT ATRIUM: NORMAL LEFT ATRIUM: NORMAL RIGHT VENTRICLE: NORMAL LEFT VENTRICLE: NORMAL TRICUSPID VALVE: NORMAL MITRAL VALVE: MITRAL ANNULAR CALCIFICATION PULMONIC VALVE: NORMAL AORTIC VALVE: PERICARDIAL EFFUSION: NONE AORTIC ROOT: NORMAL LEFT VENTRICULAR WALL MOTION: NORMAL DOPPLER/COLOR FLOW: SEE BELOW. COMMENTS: NORMAL LEFT VENTRICULAR EJECTION FRACTION >60%, HYPERDYNAMIC. 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 MILD AORTIC INSUFFICIENCY. TECHNOLOGIST: Bryanna TERRAZAS
--- NOTE | 2020-06-06 09:29 | RAD REPORT ---
EXAM DESCRIPTION: MRI - Brain W/Wo Cont - 06/05/2020 10:08 pm CLINICAL HISTORY: CVA COMPARISON: June 04, [address] TECHNIQUE: Axial, sagittal, and coronal magnetic images of the brain were obtained. 16 cc MultiHance administered intravenously FINDINGS: Mild to moderate signal within periventricular, deep and subcortical white matter probably ischemic changes secondary to small vessel disease The ventricles are normal in caliber. Diffusion-weighted/ ADC mapping sequences do not demonstrate evidence of an acute infarction. No abnormal enhancement within the brain is seen. An extra-axial fluid collection is not noted. . Mild cerebral atrophy Fluid within the sinuses/mastoids is not seen. Mild chronic sinusitis IMPRESSION: No acute abnormality displayed
--- NOTE | 2020-06-06 09:30 | RAD REPORT ---
EXAM DESCRIPTION: MRI - MRA Neck W/Wo Cont - 06/05/2020 10:08 pm CLINICAL HISTORY: CVA COMPARISON: None. TECHNIQUE: Magnetic resonance angiogram of the neck was performed. 19 cc MultiHance was administered intravenously. 3D MIPS reconstruction performed FINDINGS: Mild plaque within common carotid, internal carotid and external carotid arteries. An aneu rysm is not seen. Left vertebral artery is dominant. No significant abnormalities splayed. IMPRESSION: Mild plaque within the carotid arteries NASCET criteria used. Mild 0-49% stenosis Moderate 50-69% stenosis Severe 70-99% stenosis
--- NOTE | 2020-06-06 09:32 | RAD REPORT ---
EXAM DESCRIPTION: MRI - MRA Head Wo Cont - 06/05/2020 10:08 pm CLINICAL HISTORY: CVA COMPARISON: None. TECHNIQUE: Magnetic resonance angiogram was performed. 3D MIPS reconstruction performed FINDINGS: The anterior cerebral, middle cerebral, posterior cerebral, distal internal carotid and ba silar arteries do not demonstrate a significant stenosis. An aneurysm is not displayed. IMPRESSION: No significant abnormalities displayed
[2020-06-06] MEDS: ENOXAPARIN 30 MG/0.3 ML SQ SCH ×2 (10:04→20:57)
[2020-06-06] MEDS: FINASTERIDE 5 MG TAB PO SCH (10:05)
[2020-06-06] MEDS: AMANTADINE 100 MG CAP PO SCH (10:05)
[2020-06-06] MEDS: FAMOTIDINE 20 MG TAB PO SCH ×2 (10:05→20:58)
[2020-06-06] MEDS: CARBIDOPA/LEVODOPA 25/100 TAB FT SCH ×4 (10:08→20:58)
[2020-06-06] MEDS: JEVITY 1.2 CAL LIQUID 1,000 ML BOT RTH SCH (12:20)
--- NOTE | 2020-06-06 16:11 | P.PN ---
Subjective Date of Service: 06/06/20 Chief Complaint: Fall, left hip pain Patient awake. He is stiff and moves only his eyes. Physical Examination - Vital Signs Temperature: 98.8 F Blood Pressure: 124/60 Pulse: 81 Respirations: 19 Pulse Ox (%): 94 - Physical Exam General: Other (Awake) HEENT: Other (NGT) Neck: JVD not distended Respiratory: Clear to auscultation bilaterally, Normal air movement Cardiovascular: No edema, Regular rate/rhythm Gastrointestinal: Normal bowel sounds, Soft and benign, Non-distended Musculoskeletal: No swelling Neurological: Other (Global rigidity.) Assessment And Plan - Current Problems (Diagnosis) (1) Hip fracture, left Current Visit: Yes Status: Acute (2) History of Parkinson's disease Current Visit: No Status: Acute (3) Sinus tachycardia Current Visit: Yes Status: Acute (4) Dysphagia Current Visit: Yes Status: Acute Physician Review Additional Text: Physical Exam General: Oriented x1, awake, lethargic, squeezes hand on command and in response to questions HEENT: normal conjunctiva, masked facies Pulm: mild R basilar rhonchi, diminished air entry throughout, shallow respirations CV: regular rate and rhythm, occasional sinus tachycardia (90s), no murmur, no edema abd: soft, NTND Ext: no rash, no lesions, surgical site with dressing c/d/i Neuro: squeezes hand on command and in response to questions Problem List Hip fracture, left; s/o ORIF History of Parkinson's disease Sinus tachycardia, SVT Elevated blood pressure. s/p HERLINDA fixation with Ortho; with difficulty swallowing post-operatively spoke with family- report patient is more confused / weak / difficult to understand since out of surgery. state he has some "bad days", but on good days he's mostly independent -likely multifactorial, patient chronic ischemic changes, Parkinson's /dementia, and surgery will increase his risk for postoperative delirium. Family report the patient was speaking somewhat confused before coming into the hospital. Possible stroke, CT brain 06/04 no acute stroke. MRI of the brain: No acute CV Neurology consulted - patient's neurologist is Dr. Reyna. Patient missed nearly 2 days of carvidopa/levodopa on day of surgery and POD1 due to not having medication available - this combined with surgery is likely causing an acute worsening/"exacerbation" of his parkinson's symptoms - masked facies, weakness, stiffness. Her major contribution factor is the surgery. continue parkinson medications - carvidopa/levodopa. Neurology input appreciated. Patient started on fast acting Sinemet. Improvement to baseline functional status is unlikely. I had a prognosis discussion with the spouse and recommended hospice. She will want us to continue treatment for the next few days to see how he respond. NG tube is inserted for feeding. Patient would eventually need PEG tube if he does not end up on hospice. Spouse wishes to make him DNR. Postop DVT prophylaxis per ortho. - on therapeutic Lovenox
[2020-06-06] MEDS ORDERED: NA CHLORIDE 0.9% 250 ML IV PRN (16:37)
[2020-06-06] MEDS: NA CHLORIDE 0.9% 1,000 ML IV SCH (17:34)
[2020-06-06] MEDS ORDERED: METOPROLOL TARTRATE 5 MG/5 ML INJ IV STA (23:34)
[2020-06-07] MEDS ORDERED: METOPROLOL TARTRATE 5 MG/5 ML INJ IV PRN
--- NOTE | 2020-06-07 00:04 | EKG ---
Test Date: 2020-06-04 Test Time: 08:19:20 Suede Brusher: [id number] MEASUREMENT RESULTS: Intervals: Rate: 125 RI: QRSD: 104 QT: 378 QTc: 545 [place]: P: RI: QRS: -23 T: 52 INTERPRETIVE STATEMENTS: Accelerated Junctional rhythm Minimal voltage criteria for LVH, may be normal variant Possible Lateral infarct, age undetermined Abnormal ECG Compared to ECG 05/28/2020 22:37:31 Accelerated junctional rhythm now present Myocardial infarct finding now present Sinus rhythm no longer present First degree AV block no longer present Electronically Signed On 06-06-20 23:59:36 FUNCTIONAL CONSULTANT by Alistair Up
[2020-06-07] MEDS: NA CHLORIDE 0.9% 1,000 ML IV SCH ×3 (03:20→23:44)
[2020-06-07 04:36] LABS: Absolute Lymphocytes (CBC) 0.7 K/uL (0.7-4.9); Basophils % 0.1 % (0-1.3); Hematocrit 33.7 % (39.6-49.0); Lymphocytes % 6.5 % (15.3-44.8); MPV 8.3 fL (7.6-11.3); RBC Red Blood Cell Count 3.72 M/uL (4.33-5.43)
[2020-06-07 05:00] LABS: BUN Blood Urea Nitrogen 13 mg/dL (7-18); Bicarbonate 30 mmol/L (21-32); Glucose Level 165 mg/dL (74-106); Potassium 3.8 mmol/L (3.5-5.1); Sodium Level 141 mmol/L (136-145)
[2020-06-07] MEDS: METOPROLOL TAR 25 MG TAB PO SCH ×2 (05:42→18:00)
[2020-06-07] MEDS: LEVOTHYROXINE SOD 0.088 MG TAB PO SCH (05:43)
[2020-06-07] MEDS: JEVITY 1.2 CAL LIQUID 1,000 ML BOT RTH SCH (06:46)
[2020-06-07] MEDS: LEVALBUTEROL 0.63 MG/3 ML NEB NEB SCH ×2 (08:27→16:00)
[2020-06-07] MEDS: CARBIDOPA/LEVODOPA 25/100 TAB FT SCH ×4 (10:54→22:19)
[2020-06-07] MEDS: FINASTERIDE 5 MG TAB PO SCH (10:54)
[2020-06-07] MEDS: ENOXAPARIN 30 MG/0.3 ML SQ SCH ×2 (10:55→22:20)
[2020-06-07] MEDS: FAMOTIDINE 20 MG TAB PO SCH ×2 (10:55→22:19)
[2020-06-07] MEDS: AMANTADINE 100 MG CAP PO SCH (10:55)
--- NOTE | 2020-06-07 14:20 | P.PN ---
Subjective Date of Service: 06/07/20 Chief Complaint: Fall, left hip pain Subjective: No new changes (Patient still drowsy) Review of Systems is unable to be obtained Physical Examination - Vital Signs Temperature: 98.3 F Blood Pressure: 114/56 Pulse: 80 Respirations: 21 Pulse Ox (%): 90 - Physical Exam General: Unresponsive HEENT: Atraumatic, Normocephalic Neck: Supple Respiratory: Clear to auscultation bilaterally, Normal air movement Cardiovascular: Regular rate/rhythm, Normal S1 S2 Capillary refill: <2 Seconds Gastrointestinal: Soft and benign, W/out hepatosplenomegaly Musculoskeletal: No clubbing Integumentary: No rashes Neurological: Other (Drowsy , barely arousable ,) Lymphatics: No axilla or inguinal lymphadenopathy Assessment & Plan Physician Review Additional Text: Assessment and plan Acute encephalopathy Hip fracture, left; s/o ORIF History of Parkinson's disease Sinus tachycardia, SVT Elevated blood pressure. s/p HERLINDA fixation with Ortho; with difficulty swallowing post-operatively spoke with family- report patient is more confused / weak / difficult to understand since out of surgery. state he has some "bad days", but on good days he's mostly independent -likely multifactorial, patient chronic ischemic changes, Parkinson's /dementia, and surgery will increase his risk for postoperative delirium. Family report the patient was speaking somewhat confused before coming into the hospital. Possible stroke, CT brain 06/04 no acute stroke. MRI of the brain: No acute CV Neurology consulted - patient's neurologist is Dr. Reyna. Patient missed nearly 2 days of carvidopa/levodopa on day of surgery and POD1 due to not having medication available - this combined with surgery is likely causing an acute worsening/"exacerbation" of his parkinson's symptoms - masked facies, weakness, stiffness. Her major contribution factor is the surgery. continue parkinson medications - carvidopa/levodopa. Neurology input appreciated. Patient started on fast acting Sinemet. Improvement to baseline functional status is unlikely. I had a prognosis discussion with the spouse and recommended hospice. She will want us to continue treatment for the next few days to see how he respond. NG tube is inserted for feeding. Patient would eventually need PEG tube if he does not end up on hospice. Spouse wishes to make him DNR. Postop DVT prophylaxis per ortho. - on therapeutic Lovenox Discussed in detail with the family at the bedside. Discuss about options Family wants to wait 1-2 days to see if any meaningful recovery workers Time Spent Managing Pts Care (In Minutes): 40
[2020-06-07] MEDS ORDERED: METOPROLOL TARTRATE 5 MG/5 ML INJ IV STA ×2 (14:33→18:08)
[2020-06-07] MEDS ORDERED: CALCIUM GLUC 10% INJ 4.65 MEQ in NA CHLORIDE 0.9% 100 ML IV ONE (14:33)
[2020-06-07] MEDS ORDERED: NA CHLORIDE 0.9% 500 ML IV ONE (17:59)
[2020-06-07] MEDS ORDERED: METOPROLOL TAR 25 MG TAB PO SCH (18:00)
[2020-06-07 18:38] LABS: Hematocrit 36.9 % (39.6-49.0)
[2020-06-07 19:01] LABS: ALT/SGPT 67 U/L (12-78); AST/SGOT 28 U/L (15-37); Albumin 2.3 g/dL (3.4-5.0); Alkaline Phosphatase 81 U/L (45-117); BUN Blood Urea Nitrogen 14 mg/dL (7-18); Bicarbonate 30 mmol/L (21-32); Bilirubin Total 0.6 mg/dL (0.2-1.0); Glucose Level 162 mg/dL (74-106); Potassium 4.1 mmol/L (3.5-5.1); Protein, Total 6.2 g/dL (6.4-8.2); Sodium Level 142 mmol/L (136-145)
--- NOTE | 2020-06-07 19:02 | RAD REPORT ---
EXAM DESCRIPTION: RAD - Chest Single View - 06/07/2020 6:30 pm CLINICAL HISTORY: tachy Chest pain. COMPARISON: Abdomen 1 View (KUB) dated 06/04/2020; Chest Single View dated 06/04/2020; Chest Single Vi ew dated 06/03/2020; Chest Single View dated 06/03/2020 FINDINGS: Portable technique limits examination quality. The lungs are underinflated with atelectasis both lung bases. The heart is mildly prominent in size. Enteric tube is likely in the stomach.Gaseous distention of bowel loops suggests ileus.
[2020-06-07] MEDS: METOPROLOL TAR 50 MG TAB PO SCH (22:19)
[2020-06-08] MEDS: JEVITY 1.2 CAL LIQUID 1,000 ML BOT RTH SCH (04:37)
--- NOTE | 2020-06-08 05:44 | EKG ---
Test Date: 2020-06-04 Test Time: 08:54:21 Route Process Administrator: [id number] MEASUREMENT RESULTS: Intervals: Rate: 91 AK: 204 QRSD: 110 QT: 358 QTc: 440 [place]: P: 62 AK: 204 QRS: -18 T: 27 INTERPRETIVE STATEMENTS: Normal sinus rhythm Normal ECG Compared to ECG 06/04/2020 08:52:50 No significant changes Electronically Signed On 06-08-20 05:36:32 RUG SCRATCHER by Alistair Up
--- NOTE | 2020-06-08 05:44 | EKG ---
Test Date: 2020-06-04 Test Time: 08:56:11 Physical Therapy Aide: [id number] MEASUREMENT RESULTS: Intervals: Rate: 92 MD: 204 QRSD: 106 QT: 340 QTc: 420 [place]: P: 65 MD: 204 QRS: -19 T: 26 INTERPRETIVE STATEMENTS: Normal sinus rhythm Nonspecific ST abnormality Abnormal ECG Compared to ECG 06/04/2020 08:54:21 ST (T wave) deviation now present Electronically Signed On 06-08-20 05:36:31 INSURANCE AGENCY OWNER by Alistair Up
--- NOTE | 2020-06-08 05:44 | EKG ---
Test Date: 2020-06-04 Test Time: 08:52:50 Competency Evaluated Nurse Aide: [id number] MEASUREMENT RESULTS: Intervals: Rate: 95 NM: 206 QRSD: 106 QT: 328 QTc: 412 [place]: P: 69 NM: 206 QRS: -19 T: 31 INTERPRETIVE STATEMENTS: Normal sinus rhythm Normal ECG Compared to ECG 06/04/2020 08:19:20 Accelerated junctional rhythm no longer present Left ventricular hypertrophy no longer present Myocardial infarct finding no longer present Electronically Signed On 06-08-20 05:36:33 PEDIATRIC DENTAL ASSISTANT by Alistair Up
[2020-06-08] MEDS: LEVOTHYROXINE SOD 0.088 MG TAB PO SCH (06:46)
[2020-06-08] MEDS: LEVALBUTEROL 0.63 MG/3 ML NEB NEB SCH ×3 (07:47→15:00)
[2020-06-08] MEDS: AMANTADINE 100 MG CAP PO SCH (10:27)
[2020-06-08] MEDS: METOPROLOL TAR 50 MG TAB PO SCH ×2 (10:27→21:00)
[2020-06-08] MEDS: CARBIDOPA/LEVODOPA 25/100 TAB FT SCH ×3 (10:27→19:41)
[2020-06-08] MEDS: FAMOTIDINE 20 MG TAB PO SCH ×2 (10:27→21:17)
[2020-06-08] MEDS: FINASTERIDE 5 MG TAB PO SCH (10:27)
[2020-06-08] MEDS: ENOXAPARIN 30 MG/0.3 ML SQ SCH ×2 (10:28→21:16)
[2020-06-08] MEDS: NA CHLORIDE 0.9% 1,000 ML IV SCH ×2 (11:56→21:15)
--- NOTE | 2020-06-08 17:24 | P.PN ---
Subjective Date of Service: 06/08/20 Chief Complaint: Fall, left hip pain Patient awake. He is now able to verbalize a few words and move his neck. Noted he has gag reflex. Chest x-ray demonstrated dilated and possible small- bowel dishes distention consistent with ileus. Nurse report patient had a bowel movement after the chest x-ray. Physical Examination - Vital Signs Temperature: 98.3 F Blood Pressure: 138/78 Pulse: 80 Respirations: 18 Pulse Ox (%): 95 - Physical Exam General: In no apparent distress, Other (Awake, follows commands intermittently.) HEENT: PERRLA, Sclerae nonicteric Neck: JVD not distended Respiratory: Clear to auscultation bilaterally, Normal air movement Cardiovascular: Regular rate/rhythm, Normal S1 S2, Edema (Bilateral upper extremities, worse on the right.) Gastrointestinal: Normal bowel sounds, Soft and benign, Non-distended Musculoskeletal: No tenderness Integumentary: No rashes Neurological: Other (Global stiffness. No limb movement.) Assessment And Plan - Current Problems (Diagnosis) (1) Hip fracture, left Current Visit: Yes Status: Acute (2) History of Parkinson's disease Current Visit: No Status: Acute (3) Sinus tachycardia Current Visit: Yes Status: Acute (4) Dysphagia Current Visit: Yes Status: Acute Physician Review Additional Text: Assessment and plan Acute encephalopathy Hip fracture, left; s/o ORIF History of Parkinson's disease Sinus tachycardia, SVT Elevated blood pressure. s/p HERLINDA fixation with Ortho; with difficulty swallowing post-operatively spoke with family- report patient is more confused / weak / difficult to understand since out of surgery. state he has some "bad days", but on good days he's mostly independent -likely multifactorial, patient chronic ischemic changes, Parkinson's /dementia, and surgery will increase his risk for postoperative delirium. Family report the patient was speaking somewhat confused before coming into the hospital. Possible stroke, CT brain 06/04 no acute stroke. MRI of the brain: No acute CV Neurology consulted - patient's neurologist is Dr. Reyna. Patient missed nearly 2 days of carvidopa/levodopa on day of surgery and POD1 due to not having medication available - this combined with surgery is likely causing an acute worsening/"exacerbation" of his parkinson's symptoms - masked facies, weakness, stiffness. Her major contribution factor is the surgery. continue parkinson medications - carvidopa/levodopa. Neurology input appreciated. Patient started on fast acting Sinemet. Improvement to baseline functional status is unlikely. I had a prognosis discussion with the spouse and recommended hospice. She will want us to continue treatment for the next few days to see how he respond. NG tube is inserted for feeding. Patient would eventually need PEG tube if he does not end up on hospice. Now verbalizing a few words. He is tolerating NG tube feeding. Abdomen is not distended. Postive BM. Continue NG tube feeding. Speech therapy to follow for ongoing swallow evaluations. Postop DVT prophylaxis per ortho. - on therapeutic Lovenox. Discussed in detail with the family at the bedside. Family wants to wait 1-2 days to see if any meaningful recovery occurs.
[2020-06-08] MEDS ORDERED: METOPROLOL TARTRATE 5 MG/5 ML INJ IV STA (20:29)
[2020-06-08] MEDS ORDERED: NA CHLORIDE 0.9% 500 ML IV ONE (23:38)
[2020-06-09] MEDS: CARBIDOPA/LEVODOPA 25/100 TAB FT SCH ×3 (00:36→13:00)
[2020-06-09] MEDS ORDERED: ADENOSINE 6 MG/ 2ML VIAL IV ONE ×2 (01:30→01:45)
[2020-06-09] MEDS ORDERED: NA CHLORIDE 0.9% 500 ML IV ONE (01:36)
[2020-06-09 03:39] LABS: BUN Blood Urea Nitrogen 16 mg/dL (7-18); Bicarbonate 27 mmol/L (21-32); Glucose Level 155 mg/dL (74-106); Potassium 4.1 mmol/L (3.5-5.1); Sodium Level 139 mmol/L (136-145)
[2020-06-09] MEDS: NA CHLORIDE 0.9% 1,000 ML IV SCH (06:28)
[2020-06-09] MEDS: LEVOTHYROXINE SOD 0.088 MG TAB PO SCH (06:28)
[2020-06-09] MEDS: LEVALBUTEROL 0.63 MG/3 ML NEB NEB SCH ×2 (08:00)
[2020-06-09] MEDS: FINASTERIDE 5 MG TAB PO SCH (09:00)
[2020-06-09] MEDS: METOPROLOL TAR 50 MG TAB PO SCH (09:00)
[2020-06-09] MEDS: FAMOTIDINE 20 MG TAB PO SCH (09:00)
[2020-06-09] MEDS: AMANTADINE 100 MG CAP PO SCH (09:00)
[2020-06-09] MEDS: ENOXAPARIN 30 MG/0.3 ML SQ SCH (09:00)
[2020-06-09 09:45] VITALS: O2SAT 90
[2020-06-09] MEDS: MORPHINE 2 MG/ML SYR IV PRN (12:40)
[2020-06-09 12:51] VITALS: BP 86/6; TEMP 97.8
--- NOTE | 2020-06-09 14:10 | EKG ---
Test Date: 2020-06-08 Test Time: 23:41:48 Market Research Executive: SREG MEASUREMENT RESULTS: Intervals: Rate: 144 GA: QRSD: 112 QT: 296 QTc: 458 [place]: P: GA: QRS: -17 T: 56 INTERPRETIVE STATEMENTS: Supraventricular tachycardia Otherwise normal ECG Compared to ECG 06/08/2020 19:57:35 No significant changes Electronically Signed On 06-09-20 14:08:53 JOB FOREMAN by Alistair Up
--- NOTE | 2020-06-09 14:11 | EKG ---
Test Date: 2020-06-08 Test Time: 19:57:35 General Assembler: RT-O MEASUREMENT RESULTS: Intervals: Rate: 152 [place]: QRSD: 112 QT: 298 QTc: 473 [place]: P: [place]: QRS: -17 T: 74 INTERPRETIVE STATEMENTS: Supraventricular tachycardia Otherwise normal ECG Compared to ECG 06/04/2020 08:56:11 Sinus rhythm no longer present ST (T wave) deviation no longer present Electronically Signed On 06-09-20 14:09:01 CARD CLOTHIER by Alistair Up
--- NOTE | 2020-06-09 15:48 | P.DS ---
Admission Date: 05/29/20 Discharge Date: 06/09/20 Disposition: HOSPICE-MEDICAL FACILITY Reason for Admission: Fall, left hip pain - Problems (1) Hip fracture, left Status: Acute (2) History of Parkinson's disease Status: Acute (3) Sinus tachycardia Status: Acute (4) Dysphagia Status: Acute Brief History of Present Illness: 79-year-old man with a history of Parkinson's disease, BPH on Flomax, coronary artery disease status post cardiac stent, hypothyroidism was brought to the emergency department because patient slipped and fell. Patient was unable to get up and walk. His head CT was negative but his x-ray of his left hip showed fracture. Orthopedic surgery was consulted and patient admitted for further management. Hospital Course: Patient admitted to the medical floor. Will be due consulted, patient seen by Dr. Still. Left hemiarthroplasty performed. Patient developed confusion during the postop period. He later developed rigidity from his Parkinson's disease. Patient missed some doses of his Sinemet. Neurology was consulted, patient was seen by Dr. Reyna will put him on the fast acting Sinemet. NG tube was inserted for tube feeding and oral medications and also hydrated with IV fluid. Patient did not respond to treatment He developed bouts of tachycardia and hypotension. Patient was not able to participate in physical therapy. Prognosis considered poor. Spouse made him DNR and decided to proceed with hospice. Patient discharged to inpatient hospice. Vital Signs/Physical Exam: Temp Pulse Resp BP Pulse Ox 97.8 F 180 H 24 H 86/6 L 94 06/09/20 12:00 06/09/20 12:00 06/09/20 12:00 06/09/20 12:00 06/09/20 12:00 General: Other (Awake, confused.) Respiratory: Diminished Cardiovascular: No edema, Normal S1 S2, Other (Tachycardic) Gastrointestinal: Soft and benign, Non-distended Laboratory Data at Discharge: WBC 10.40 K/uL (4.3-10.9) 06/07/20 18:28 Hgb 12.1 g/dL (13.6-17.9) L 06/07/20 18:28 Hct 36.9 % (39.6-49.0) L 06/07/20 18:28 Plt Count 434 K/uL (152-406) H 06/07/20 18:28 PT 13.4 SECONDS (9.5-12.5) H 05/28/20 22:24 INR 1.16 05/28/20 22:24 APTT 28.6 SECONDS (24.3-36.9) 05/28/20 22:24 Sodium 139 mmol/L (136-145) 06/09/20 02:56 Potassium 4.1 mmol/L (3.5-5.1) 06/09/20 02:56 BUN 16 mg/dL (7-18) 06/09/20 02:56 Creatinine 0.46 mg/dL (0.55-1.3) L 06/09/20 02:56 Glucose 155 mg/dL (74-106) H 06/09/20 02:56 Magnesium 2.0 mg/dL (1.8-2.4) 06/09/20 02:56 Total Bilirubin 0.6 mg/dL (0.2-1.0) 06/07/20 18:28 AST 28 U/L (15-37) 06/07/20 18:28 ALT 67 U/L (12-78) 06/07/20 18:28 Alkaline Phosphatase 81 U/L (45-117) 06/07/20 18:28 Troponin I 0.02 ng/mL (0.0-0.045) 06/04/20 23:07 Followup: Unknown,U [Primary Care Provider] - Time spent managing pt's care (in minutes): 33
--- NOTE | 2020-06-11 07:31 | EKG ---
Test Date: 2020-06-07 Test Time: 14:52:17 Recycler Forklift Driver Truck Driver: COLT MEASUREMENT RESULTS: Intervals: Rate: 148 [place]: QRSD: 114 QT: 306 QTc: 480 [place]: P: [place]: QRS: -26 T: 45 INTERPRETIVE STATEMENTS: Supraventricular tachycardia Minimal voltage criteria for LVH, may be normal variant Nonspecific T wave abnormality Abnormal ECG Compared to ECG 06/06/2020 16:35:41 Left ventricular hypertrophy now present Sinus rhythm no longer present Atrial premature complex(es) no longer present First degree AV block no longer present T-wave abnormality still present Electronically Signed On 06-11-20 07:30:34 THREAD MACHINE OPERATOR by Alistair Up
--- NOTE | 2020-06-11 07:32 | EKG ---
Test Date: 2020-06-06 Test Time: 16:34:02 Foxpro Developer: [id number] MEASUREMENT RESULTS: Intervals: Rate: 157 [place]: QRSD: 108 QT: 294 QTc: 475 [place]: P: [place]: QRS: -17 T: 69 INTERPRETIVE STATEMENTS: Supraventricular tachycardia with fusion complexes Minimal voltage criteria for LVH, may be normal variant Borderline ECG Compared to ECG 06/04/2020 08:56:11 Fusion complex(es) now present Left ventricular hypertrophy now present Sinus rhythm no longer present ST (T wave) deviation no longer present Electronically Signed On 06-11-20 07:30:38 ONLINE ACTIVIST by Alistair Up
--- NOTE | 2020-06-12 17:16 | EKG ---
Test Date: 2020-06-06 Test Time: 16:35:41 Calender Let Off Operator: [email or web address] MEASUREMENT RESULTS: Intervals: Rate: 98 [place]: 214 QRSD: 102 QT: 326 QTc: 416 [place]: P: 58 [place]: 214 QRS: -9 T: 33 INTERPRETIVE STATEMENTS: Sinus rhythm with 1st degree AV block with premature supraventricular complexes Nonspecific T wave abnormality Abnormal ECG Compared to ECG 06/06/2020 16:34:02 Atrial premature complex(es) now present First degree AV block now present T-wave abnormality now present Supraventricular tachycardia no longer present Fusion complex(es) no longer present Left ventricular hypertrophy no longer present Electronically Signed On 06-12-20 17:07:09 MYSQL DATABASE DEVELOPER by Alistair Up
== END 2020-06-09 13:16 | disposition hospice, inpatient (51) | DRG 522 ==
LOC: ER 22:13 → ERHOLD 05-29 00:09 → 2ND 05-29 00:43
PROVIDERS: ADMIT Internal Medicine; ATTEND Internal Medicine
PROC: 0SRS0JZ Replacement of Left Hip Joint, Femoral Surface with Synthetic Substitute, Open Approach (ICD-10-PCS; principal; 2020-05-29 17:00)
DX: S72.012A Unspecified intracapsular fracture of left femur, initial encounter for closed fracture (principal); I47.1 Supraventricular tachycardia; G93.40 Encephalopathy, unspecified; K56.7 Ileus, unspecified; R44.3 Hallucinations, unspecified; G20 Parkinson's disease; N40.0 Benign prostatic hyperplasia without lower urinary tract symptoms; I25.10 Atherosclerotic heart disease of native coronary artery without angina pectoris; I10 Essential (primary) hypertension; E03.9 Hypothyroidism, unspecified; G47.00 Insomnia, unspecified; K21.9 Gastro-esophageal reflux disease without esophagitis; I25.2 Old myocardial infarction; R13.10 Dysphagia, unspecified; W01.0XXA Fall on same level from slipping, tripping and stumbling without subsequent striking against object, initial encounter; Z66 Do not resuscitate; Z79.890 Hormone replacement therapy; Z79.899 Other long term (current) drug therapy; Z95.5 Presence of coronary angioplasty implant and graft; Z96.653 Presence of artificial knee joint, bilateral; Z90.49 Acquired absence of other specified parts of digestive tract; Z20.822 Contact with and (suspected) exposure to COVID-19
CPT/HCPCS: 36415; 70450; 70544; 70549; 70553; 71045; 71275; 72125; 72170; 74018; 74177; 80048; 80053; 81003; 81015; 82947; 83605; 83735; 84134; 84145; 84443; 84484; 85025; 85027; 85610; 85730; 87040; 88305; 88311; 92610; 93005; 93306; 94640; 94760; 94761; 96361; 96374; 96375; 97110; 97112; 97161; 97530; 99285; A9577; G0390; J0153; J0330; J0360; J0610; J0690; J1644; J1650; J2175; J2250; J2270; J2370; J2405; J2704; J2710; J3010; J7030; J7042; J7050; J7120; Q9967; U0003

== ENCOUNTER 2020-06-09 13:11 | Inpatient (IN) | payer OTHER ==
--- OUTSIDE RECORDS SUMMARY | 2020-06-09 13:33 | XMS REPORT | Continuity of Care Document ---
:1940 Author Organization [facility] t Address [address] [place] [address] Care Team Providers Name Role Phone Melvin FREITAS Primary Care Physician Problems Condition Condition Condition Status Onset Resolution Last Treating Co mments Source Name Details Category Date Date Treatment Clinician Date Lower Lower Disease Active urinary urinary 3-26 Anderso tract tract 00:00: n symptoms symptoms 00 Elevated Elevated Diagnosis Active [facility] PSA [facility] Urge Urge Diagnosis Active [facility] incontinen incontinen [facility]y [facility] - [facility] Allergies, Adverse Reactions, Alerts This patient has no known allergies or adverse reactions. Family History Family Member Diagnosis Comments Start Date Stop Date Source Natural brother Mesothelioma MD Maximo tripp Family member problems MD Selwyn diaz Social History Social Habit Start Date Stop Date Quantity Comments Source History of tobacco Snuff User use Sex Assigned At MD Argueta on Alcohol intake 2016-01-27 2016-01-27 Current MD eSlwyn diaz 00:00:00 00:00:00 non-drinker of alcohol (finding) Cigarettes smoked 2016-01-27 2016-01-27 MD Maximo tripp current (pack per 00:00:00 00:00:00 day) - Reported Tobacco use and 2016-01-27 2016-01-27 Former user MD Sweeney son exposure 00:00:00 00:00:00 Smoking Status Start Date Stop Date Source Former smoker 2016-01-27 00:00:00 2016-01-27 00:00:00 MD Sweeney margarito Medications Ordered Filled Start Stop Current Ordering [...] A n on inhaler 00 DAY INHALED Levothyroxi Levothyroxi Yes Sayra [address] [facility] ne Sodium ne Sodium [place] on an [facility] stomach in l [facility] Colace Colace Yes Sayra [address] [facility] [place] [facility] Tamsulosin Tamsulosin Yes Sayra [address] [facility] HCl HCl [facility] Silenor Silenor Yes Sayra [address] [facility] at bedtime [facility] Finasteride Finasteride Sayra [address] [facility] Procedures This patient has no known procedures. Encounters Start End Encounter Admission Attending Care Care Encounter Source Date/Time Date/Time Type Type Clinicians Facility Department ID 2019-05-14 2019-05-14 Outpatient Tita Piña [id number] [facility] 13:00:00 13:00:00 t Specialty/U Becky kes - Specialty [facility]y [facility] 2019-02-10 2019-02-10 Outpatient Tita Piña [id number] [facility] 09:30:00 09:30:00 t Specialty/U Becky kes - Specialty rology [facility] 2018-11-11 2018-11-11 Outpatient Tita Piña [id number] [facility] 10:00:00 10:00:00 t Specialty/U Becky kes - Specialty rology [facility] Results This patient has no known results.
[2020-06-09 16:00] VITALS: BMI 25.0
[2020-06-09] MEDS ORDERED: BISACODYL 10 MG RECTAL SUPP PR PRN (16:13)
[2020-06-09] MEDS ORDERED: ACETAMINOPHEN 650MG/RECT SUPP PR PRN (16:14)
[2020-06-09] MEDS ORDERED: ONDANSETRON 4 MG/2 ML VIAL IV PRN (16:14)
[2020-06-09] MEDS: LORazepam 2 MG/ML VIAL IV SCH ×2 (16:35→20:29)
[2020-06-09] MEDS: MORPHINE 2 MG/ML SYR IV SCH ×2 (16:36→20:25)
[2020-06-09] MEDS ORDERED: SCOPOLAMINE HYDROBROMIDE PATCH TD SCH (17:00)
[2020-06-09] MEDS: LORazepam 2 MG/ML VIAL IV PRN ×2 (18:18→23:25)
[2020-06-09] MEDS: MORPHINE 2 MG/ML SYR IV PRN ×2 (18:18→19:36)
[2020-06-09 22:28] VITALS: O2SAT 84
[2020-06-10] MEDS: MORPHINE 2 MG/ML SYR IV SCH ×5 (02:01→17:40)
[2020-06-10] MEDS: LORazepam 2 MG/ML VIAL IV SCH ×5 (02:03→17:39)
[2020-06-10] MEDS: MORPHINE 2 MG/ML SYR IV PRN ×2 (10:53→15:59)
[2020-06-10] MEDS: LORazepam 2 MG/ML VIAL IV PRN (15:58)
[2020-06-10 16:30] VITALS: BP 146/90; TEMP 99.4
== END 2020-06-10 20:00 | disposition expired | DRG 951 ==
LOC: 2ND 13:11
PROVIDERS: ADMIT Internal Medicine Hematology & Oncology; ATTEND Internal Medicine Hematology & Oncology
DX: Z51.5 Encounter for palliative care (principal)
CPT/HCPCS: J2270